=== PATIENT | male | born 1960 | race Caucasian/White ===

== ENCOUNTER 2016-11-12 01:26 | Emergency (ER) | payer OTHER ==
[~2016-11-12] VITALS: Ht 180.3 cm; Wt 113.5 kg
[~2016-11-12 01:26] MED LIST: ALBI1INJ2 SQ; ATV/1 PO; DULO60CA44 PO; GABA-113 PO; METF-384 PO; VNTHFA/IN INH
[2016-11-12 01:28] VITALS: TEMP 36.5; Ht 180.3 cm; Wt 113.5 kg
[2016-11-12 01:55] VITALS: BP 108/67; PULSE 88; O2SAT 95
[2016-11-12] MEDS ORDERED: OXYCODONE IR HOME PACK PO ONE (02:00)
--- NOTE | 2016-11-12 03:21 | EMERGENCY ROOM VISIT NOTE ---
ED Visit Note First contact with patient: 01:40 CHIEF COMPLAINT: Ankle pain HISTORY OF PRESENT ILLNESS: This 56 yo patient presents to the emergency department with co worker after sustaining an injury to the right ankle and foot with a twisting, inversion motion when he was injured at work from the equipment falling on his leg and sustained an abrasion. Tetanus is current. The patient complains of pain along the outside of the ankle. The patient denies pain of the foot. The patient rates the pain as throbbing and 5/10. The patient is barely able to bear weight on the foot. Constant pain, worse with movement, weight bearing, and the dependent position. No knee pain, the patient is able to move their toes. No numbness or weakness of the foot, no laceration. The patient has had a previous fracture to this ankle. The patient has taken nothing for the pain. The patient denies any other injury. REVIEW OF SYSTEMS: A 6 system review of systems was completed with positives and pertinent negatives listed in the HPI. ALLERGIES: Penicillin MEDICATIONS: Reviewed PMH:(1) Diabetes Status: Chronic (2) Hyperlipidemia Status: Chronic SOCIAL HISTORY: No drug use PHYSICAL EXAM: Vital Signs: Reviewed Nurse's notes, vital signs stable. GENERAL : Pleasant male, no acute distress, but appears in pain, well-developed, well- nourished. MENTAL STATUS: Alert, oriented to person place and time, and cooperative. MUSCULOSKELETAL: The right ankle is swollen and tender over the lateral malleolus, but the skin is intact and there is no ligamentous instability. There is no fifth metatarsal tenderness. There is no tenderness over the rest of the foot. There is no calf tenderness. Minimal distal fibular tenderness. There is no visual deformity. The foot and toes are warm and well-perfused. Dorsalis pedis pulse 2+. Sensation to pain and light touch is intact. Capillary refill less than 2 seconds. Superficial abrasion to the right lower leg without signs of infection. EMERGENCY DEPARTMENT COURSE: I examined the patient. Bridges cleansed and dressed by nursing. X-rays of the tib-fib and ankle were reviewed by myself and no fracture. Gel splint was applied to the ankle under my direction and the position was satisfactory. Neurovascular status was rechecked and intact. The patient was instructed on the use of crutches. He was advised to follow-up with workers, but a few days or here in the ER sooner for severe pain, numbness , tingling, worsening signs or symptoms or as needed. The patient was discharged home in good condition. Differential diagnoses include sprain, strain, fracture, dislocation and other etiologies were considered. DIAGNOSIS: #1 lower leg injury of right leg number # 2 work-related injury #3 lower leg abrasion DISCHARGE INSTRUCTIONS: As below Problem List Medical Problems: (1) Diabetes Status: Chronic (2) Hyperlipidemia Status: Chronic Current/Historical Medications Scheduled Albiglutide (Tanzeum), 50 MG SQ WK Albuterol Hfa (Ventolin Hfa), 2 PUFFS INH Q4 Duloxetine Hcl (Cymbalta), Unknown Dose PO DAILY Gabapentin (Neurontin), 300 MG PO TID Lorazepam (Ativan), 1 MG PO DAILY Metformin Hcl (Glucophage), 1,000 MG PO QPM Allergies Coded Allergies: Penicillins (Verified Allergy, Unknown, nausea, 11/12/16) Vital Signs Date Time Temp Pulse Resp B/P Pulse Ox O2 Delivery O2 Flow Rate FiO2 11/12/16 01:55 88 20 108/67 95 Room Air 11/12/16 01:28 36.5 86 20 130/97 96 Room Air Departure Information Impression Primary Impression: Injury of right lower leg Additional Impressions: Work related injury Abrasion, right lower leg, initial encounter Dispostion Home / Self-Care Condition GOOD Referrals Josh Ray MD Forms HOME CARE DOCUMENTATION FORM, Work Instructions, Return To Work: 1 day IMPORTANT VISIT INFORMATION Patient Instructions [facility], ED Abrasion Additional Instructions Antibiotic ointment and bandage to the areas until healed. Follow up with family doctor or return for any signs of infection (increasing redness, swelling , drainage, or fever). Keep covered when in sun until fully healed then SPF 50 or higher until scar healed. Oxycodone (OxyIR) 5mg: Take 1-2 pills every four hours for breakthrough pain. Avoid alcohol, operating machinery or dangerous equipment, working on ladders or roofs, DRIVING, or situations where being under the influence may be dangerous. It is recommended to use an bagz-ker-cbiagha stool softener such as Colace, 100mg twice daily while taking this medication to avoid constipation. Ibuprofen(Motrin, Advil) may be used for fever or pain. Use 600mg every six hours as needed. Take with food. Avoid using more than 2400mg in a 24 hour period. Do not use 2400mg per day for more than three consecutive days without physician direction. Prolonged inappropriate use can lead to stomach upset or ulcers. This medication can be taken if you need to drive, work, or perform activities which may be dangerous when taking narcotic pain medication. (AND/OR) Acetaminophen(Tylenol) may be used for fever or pain. Use 1000mg every six hours as needed. Avoid using more than 3000mg in a 24 hour period. This medication can be taken if you need to drive, work, or perform activities which may be dangerous when taking narcotic pain medication. Ice compresses for 20 minutes at a time four times daily for 2-3 days. Use the crutches as instructed. Rest and elevate your injury. Wear ankle gel splint until pain subsides. Do not have it so tight that you cannot feel your foot. Continue current medications. Return to the ER immediately for any numbness, tingling, severe pain, extreme swelling in the extremity or as needed. Call Orthopedics tomorrow to arrange follow up for your injury. Work Instructions Return To Work: 1 day Problem Qualifiers
--- NOTE | 2016-11-12 06:58 | DIAGNOSTIC IMAGING REPORT ---
RIGHT ANKLE MIN 3 VIEWS ROUTINE CLINICAL HISTORY: right, metal fell Right trauma. Pain. COMPARISON: None. DISCUSSION: Several small avulsions from the medial malleolus. Mild degenerative change subtalar joint. Very small heel spur. No acute bony abnormality. Moderate degenerative osteophytic change throughout. There is no evidence for soft tissue swelling. IMPRESSION: Degenerative change. Findings consistent with old trauma. No acute bony abnormality. Electronically signed by: Donal Christian M.D. 11/12/2016 6:56 AM Dictated Date/Time: 11/12/2016 6:56 AM
--- NOTE | 2016-11-12 07:01 | DIAGNOSTIC IMAGING REPORT ---
RIGHT TIBIA/FIBULA 2 VIEWS ROUTINE CLINICAL HISTORY: right, metal fell Right trauma. Pain. COMPARISON: None. DISCUSSION: The bones and joint spaces appear intact. There is no evidence of fracture, dislocation or bony disease. There is no evidence for soft tissue swelling. IMPRESSION: Negative study. Electronically signed by: Donal Christian M.D. 11/12/2016 6:59 AM Dictated Date/Time: 11/12/2016 6:59 AM
== END 2016-11-12 02:24 | disposition home or self-care (01) ==
LOC: C.EDB 01:28
DX: S89.91XA Unspecified injury of right lower leg, initial encounter (principal); S80.811A Abrasion, right lower leg, initial encounter; W20.8XXA Other cause of strike by thrown, projected or falling object, initial encounter; Y99.0 Civilian activity done for income or pay; E11.9 Type 2 diabetes mellitus without complications; E78.5 Hyperlipidemia, unspecified

== ENCOUNTER 2017-01-21 07:18 | Inpatient (IN) | payer OTHER ==
[~2017-01-21] VITALS: Ht 176.5 cm; Wt 115.7 kg
[2017-01-21] MEDS ORDERED: ESCI10TA17 PO (07:48)
[2017-01-21] MEDS ORDERED: MIRT15TA PO (07:48)
[2017-01-21 07:54] LABS: BASO % 0.4 %; BASO ABS # 0.02 K/uL (0-0.2); COMPLETE YES; EOS % 2.5 %; HEMATOCRIT 38.9 % (42-52); IG% 0.7 %; LYMPH % 26.5 %; LYMPH ABS # 1.47 K/uL (1.2-3.4); MEAN CELL VOLUME 91.1 fL (80-100); MEAN CORPUSCULAR HEMOGLOBIN 31.6 pg (25-34); MEAN CORPUSCULAR HGB CONC 34.7 g/dl (32-36); MEAN PLATELET VOLUME 9.4 fL (7.4-10.4); MONO % 8.3 %; NEUT % 61.6 %; PLATELET COUNT 161 K/uL (130-400); RED BLOOD COUNT 4.27 M/uL (4.7-6.1); WHITE BLOOD COUNT 5.54 K/uL (4.8-10.8)
[2017-01-21 08:17] LABS: URINE APPEARANCE CLEAR (CLEAR); URINE BILIRUBIN NEG (NEG); URINE COLOR DK YELLOW; URINE NITRITE NEG (NEG); URINE SPECIFIC GRAVITY 1.028 (1.000-1.030); UROBILINOGEN NEG (NEG)
[2017-01-21 08:18] LABS: MANUAL MICROSCOPIC REQUIRED? NO; REVIEW REQ? NO
[2017-01-21 08:18] LABS: BUN/CREATININE RATIO 19.6 (10-20); POTASSIUM 3.6 mmol/L (3.5-5.1)
[2017-01-21 08:22] LABS: CALCIUM 8.1 mg/dl (8.5-10.1)
--- NOTE | 2017-01-21 08:22 | EMERGENCY ROOM VISIT NOTE ---
History Report prepared by Steve: Rosa Cabrales Under the Supervision of: Dr. Vineet Wilkerson M.D. First contact with patient: 07:27 Chief Complaint: MENTAL HEALTH EVALUATION Stated Complaint: EVALUATION - SENT BY [employer]TER History of Present Illness The patient is a 56 year old male who presents to the Emergency Room with complaints of constant depression that worsened 6 days ago. The patient states that he is going through a divorce after 30 years and he has been homeless. The patient was residing at [facility] but they told him that he needed to leave the house 6 days ago. The rest of the history was obtained from the assistant case manager and nursing triage note. The patient called the [facility] crisis line on Wednesday after being told to leave [facility] and said that he was going to be found "6 feet under." He did not report having a plan to [facility]. The patient denies any homicidal ideations. He expresses that he will voluntarily come into the hospital. The patient has been going to therapy and his therapist suggested a 302, but he verbalized that he would come into the hospital voluntarily for severe depression and suicidal ideations. The patient also has an active 302 warrant. Source of History: patient, nursing staff, other (assistant case manager) Onset: 6 days ago Position: other (global) Quality: other (depression) Timing: worsening Note: suicidal ideations without plan, no homicidal ideations Review of Systems See HPI for pertinent positives & negatives. A total of 10 systems reviewed and were otherwise negative. Past Medical & Surgical Medical Problems: (1) Chest pain (2) Chronic pain (3) Depression (4) Diabetes (5) Generalized anxiety disorder (6) Hyperlipidemia (7) Nicotine abuse (8) Obesity (9) Suicidal ideation Family History FH: cancer FH: diabetes mellitus FH: heart disease Social History Smoking Status: Current Every Day Smoker Alcohol Use: none Drug Use: none Marital Status: Housing Status: lives alone Occupation Status: employed Current/Historical Medications Scheduled Albiglutide (Tanzeum), 50 MG SQ WK on Wednesday Escitalopram (Lexapro), 10 MG PO DAILY Fluticasone Prop/Salmeterol (Advair Diskus 500/50 60 Dose), 1 PUFFS INH BID Gabapentin (Neurontin), 300 MG PO TID Metformin Hcl (Glucophage), 1,000 MG PO BID Mirtazapine Soltab (Remeron Soltab), 7.5 MG PO DAILY Scheduled PRN Albuterol Sulfate (Proventil Hfa), 2 PUFFS INH QID PRN for Wheezing Allergies Coded Allergies: Penicillins (Verified Allergy, Unknown, nausea, 01/21/17) Physical Exam Vital Signs Date Time Temp Pulse Resp B/P (MAP) Pulse Ox O2 Delivery O2 Flow Rate FiO2 01/21/17 10:21 73 18 139/87 95 01/21/17 07:22 36.7 84 18 105/68 95 Room Air Physical Exam GENERAL: Patient is a healthy-appearing well-nourished male HEAD: Normocephalic atraumatic EYES: Ocular movements intact pupils equal and react to light OROPHARYNX mucous membranes are moist no exudates present no erythema or edema present NECK: Supple no nuchal rigidity CHEST: Good equal expansion LUNGS: Clear and equal to auscultation CARDIAC: Normal S1 and S2 ABDOMEN: Soft nontender no guarding BACK: No CVA tenderness EXTREMITIES: No pain upon palpation normal muscle strength in all groups no clubbing cyanosis or edema NEURO: Patient is following commands and answering questions appropriately. Alert and oriented x3 Cranial Nerves 2-12 grossly intact Medical Decision & Procedures ER Provider Diagnostic Interpretation: Radiology results as stated below per my review and radiologist interpretation: RIGHT KNEE 1 OR 2 VIEWS ROUTINE DISCUSSION: No acute fractures are visualized. There is superior patellar quadriceps insertional spurring. There is anterior tibial spine spurring at the infrapatellar tendon insertion. There are no acute fractures. There are no erosive or destructive changes. IMPRESSION: Chronic changes as described above. No acute fractures. No evidence of erosive disease. Electronically signed by: Enrique Jaime M.D. 01/21/2017 9:31 AM Dictated Date/Time: 01/21/2017 9:30 AM Laboratory Results 01/21/17 07:41 Red Blood Count 4.27, Mean Corpuscular Volume 91.1, Mean Corpuscular Hemoglobin 31.6, Mean Corpuscular Hemoglobin Concent 34.7, Mean Platelet Volume 9.4, Neutrophils (%) (Auto) 61.6, Lymphocytes (%) (Auto) 26.5, Monocytes (%) (Auto) 8.3, Eosinophils (%) (Auto) 2.5, Basophils (%) (Auto) 0.4, Neutrophils # (Auto) 3.41, Lymphocytes # (Auto) 1.47, Monocytes # (Auto) 0.46, Eosinophils # (Auto) 0.14, Basophils # (Auto) 0.02 01/21/17 07:41 Test 01/21/17 07:41 01/21/17 08:04 White Blood Count 5.54 K/uL (4.8-10.8) Red Blood Count 4.27 M/uL (4.7-6.1) Hemoglobin 13.5 g/dL (14.0-18.0) Hematocrit 38.9 % (42-52) Mean Corpuscular Volume 91.1 fL (80-100) Mean Corpuscular Hemoglobin 31.6 pg (25-34) Mean Corpuscular Hemoglobin Concent 34.7 g/dl (32-36) Platelet Count 161 K/uL (130-400) Mean Platelet Volume 9.4 fL (7.4-10.4) Neutrophils (%) (Auto) 61.6 % Lymphocytes (%) (Auto) 26.5 % Monocytes (%) (Auto) 8.3 % Eosinophils (%) (Auto) 2.5 % Basophils (%) (Auto) 0.4 % Neutrophils # (Auto) 3.41 K/uL (1.4-6.5) Lymphocytes # (Auto) 1.47 K/uL (1.2-3.4) Monocytes # (Auto) 0.46 K/uL (0.11-0.59) Eosinophils # (Auto) 0.14 K/uL (0-0.5) Basophils # (Auto) 0.02 K/uL (0-0.2) RDW Standard Deviation 42.4 fL (36.4-46.3) RDW Coefficient of Variation 12.9 % (11.5-14.5) Immature Granulocyte % (Auto) 0.7 % Immature Granulocyte # (Auto) 0.04 K/uL (0.00-0.02) Anion Gap 7.0 mmol/L (3-11) Est Creatinine Clear Calc Drug Dose 106.4 ml/min Estimated GFR () 97.1 Estimated GFR (Non- 83.8 BUN/Creatinine Ratio 19.6 (10-20) Calcium Level 8.1 mg/dl (8.5-10.1) Total Bilirubin 0.8 mg/dl (0.2-1) Direct Bilirubin 0.2 mg/dl (0-0.2) Aspartate Amino Transf (AST/SGOT) 12 U/L (15-37) Alanine Aminotransferase (ALT/SGPT) 20 U/L (12-78) Alkaline Phosphatase 92 U/L (45-117) Total Protein 6.7 gm/dl (6.4-8.2) Albumin 4.0 gm/dl (3.4-5.0) Thyroid Stimulating Hormone (TSH) 3.640 uIu/ml (0.300-4.500) Ethyl Alcohol mg/dL < 3.0 mg/dl (0-3) Urine Color DK YELLOW Urine Appearance CLEAR (CLEAR) Urine pH 6.0 (4.5-7.5) Urine Specific [place] 1.028 (1.000-1.030) Urine Protein NEG (NEG) Urine Glucose (UA) 1+ (NEG) Urine Ketones TRACE (NEG) Urine Occult Blood NEG (NEG) Urine Nitrite NEG (NEG) Urine Bilirubin NEG (NEG) Urine Urobilinogen NEG (NEG) Urine Leukocyte Esterase NEG (NEG) Urine Opiates Screen NEG (NEG) Urine Methadone, Qualitative NEG (NEG) Urine Barbiturates NEG (NEG) Urine Phencyclidine (PCP) Level NEG (NEG) Ur Amphetamine/Methamphetamine NEG (NEG) MDMA (Ecstasy) Screen POS (NEG) Urine Benzodiazepines Screen NEG (NEG) Urine Cocaine Metabolite NEG (NEG) Urine Marijuana (THC) NEG (NEG) Labs reviewed by ED physician. Medications Administered Medications (Trade) Dose Ordered Sig/Garrison Route Start Time Stop Time Status Last Admin Dose Admin Ibuprofen (Motrin Tab) 600 mg NOW STAT PO 01/21/17 08:51 01/21/17 08:52 DC 01/21/17 08:59 600 MG Oxycodone/ Acetaminophen (Percocet 5-325mg Tab) 2 tab NOW ONCE PO 01/21/17 09:00 01/21/17 09:01 DC 01/21/17 09:00 2 TAB Nicotine (Nicoderm Cq 21MG Patch) 1 patch STK-MED ONCE .ROUTE 01/21/17 10:23 01/21/17 10:24 DC 01/21/17 10:26 1 PATCH Nicotine Polacrilex (Nicorette 2MG Gum) 1 piece STK-MED ONCE .ROUTE 01/21/17 10:23 01/21/17 10:24 DC 01/21/17 10:26 1 PIECE Acetaminophen (Tylenol Tab) 650 mg Q4H PRN PO 01/21/17 10:30 02/20/17 10:29 01/21/17 22:58 650 MG Albuterol (Ventolin Hfa Inhaler) 2 puffs Q4 INH 01/21/17 12:00 01/21/17 14:59 DC 01/21/17 14:05 2 PUFFS ED Course 0738: Past medical records reviewed. The patient was evaluated in room A3. A complete history and physical examination was performed. 0834: I let the assistant case manager know that the patient is medically clear. 0847: I reassessed the patient. He informed me that he is experiencing pain in his right knee and requested some medications for it. 0851: Ordered Ibuprofen 600 mg PO 0900: Ordered Oxycodone/Acetaminophen 2 tab PO 1100: The [address] [place] [address] liaison evaluated the patient. The patient has been accepted to [address] [place] [address] so he will go there for further management and evaluation. Medical Decision Differential diagnosis: Etiologies such as mood disorder, infection, hypoglycemia, electrolyte abnormalities, cardiac sources, intracerebral event, toxicologic, neurologic, as well as others were entertained. Medication Reconciliation: I attest that I have personally reviewed the patient' s current medication list This is a 56-year-old male who presents emergency department under a mental health warrant over concerns that the patient is suicidal. He is threatening to jump off a abdias. He is also complaining of knee pain. There is no evidence of acute fracture dislocation or subluxation to the knee and his knee pain has been ongoing for the past several months. The patient will be referred to orthopedics for continuing knee pain. He was given ibuprofen and Percocet in the emergency department for his knee pain. I do believe that the patient is medically clear. He was evaluated by 3 S. who agreed to admit the patient. The patient did sign himself in. For this reason I felt that the 302 warrant could be denied. Impression Primary Impression: Mood disorder Additional Impression: Right knee pain Scribe Attestation The scribe's documentation has been prepared under my direction and personally reviewed by me in its entirety. I confirm that the note above accurately reflects all work, treatment, procedures, and medical decision making performed by me. Departure Information Dispostion Mental Health Acute Care ([facility]) Referrals No Doctor, Assigned (PCP) Patient Instructions [facility] Problem Qualifiers Additional Impression: Right knee pain Chronicity: acute Qualified Codes: M25.561 - Pain in right knee
[2017-01-21 08:29] LABS: THYROID STIMULATING HORMONE 3.64 uIu/ml (0.300-4.500)
[2017-01-21] MEDS ORDERED: IBUPROFEN 600 MG TAB PO STA (08:51)
[2017-01-21 08:56] LABS: BENZODIAZEPINE, URINE NEG (NEG); COCAINE,URINE NEG (NEG); PHENCYCLIDINE, URINE NEG (NEG)
[2017-01-21] MEDS ORDERED: OXYCODONE/ACETAMINOPHEN 5-325 TAB PO ONE (09:00)
--- NOTE | 2017-01-21 09:32 | DIAGNOSTIC IMAGING REPORT ---
RIGHT KNEE 1 OR 2 VIEWS ROUTINE CLINICAL HISTORY: Right knee pain. COMPARISON: None. DISCUSSION: No acute fractures are visualized. There is superior patellar quadriceps insertional spurring. There is anterior tibial spine spurring at the infrapatellar tendon insertion. There are no acute fractures. There are no erosive or destructive changes. IMPRESSION: Chronic changes as described above. No acute fractures. No evidence of erosive disease. Electronically signed by: Enrique Jaime M.D. 01/21/2017 9:31 AM Dictated Date/Time: 01/21/2017 9:30 AM
[2017-01-21 10:21] VITALS: O2SAT 95
[2017-01-21] MEDS ORDERED: METF-384 PO (10:23)
[2017-01-21] MEDS ORDERED: NICOTINE 21 MG/24 HR TDSY ONE (10:23)
[2017-01-21] MEDS ORDERED: NICOTINE POLACRILEX 2 MG GUM ONE (10:23)
[2017-01-21] MEDS ORDERED: ALBIGLUTIDE 50 MG SQ SCH (10:30)
[2017-01-21] MEDS ORDERED: hydrOXYzine HCL 25 MG TAB PO PRN (10:30)
[2017-01-21] MEDS ORDERED: NURSING VERBAL MED ORDER ONE (10:30)
[2017-01-21] MEDS ORDERED: SODIUM CHLORIDE 0.65% NA SOLN 45 ML (OCEAN) PRN (10:30)
[2017-01-21] MEDS ORDERED: NICOTINE POLACRILEX 2 MG GUM MT PRN (10:30)
[2017-01-21] MEDS ORDERED: ALUMINUM/MAGNESIUM SUSP 30 ML UDC PO PRN (10:30)
[2017-01-21] MEDS ORDERED: MAGNESIUM HYDROXIDE SUSP 30 ML UDC PO PRN (10:30)
[2017-01-21] MEDS ORDERED: PHARMACY GLYCEMIC MGMT CONSULT PRN (10:43)
[2017-01-21] MEDS ORDERED: ALBUTEROL HFA 8 GM INHALER INH SCH (12:00)
[2017-01-21] MEDS ORDERED: DEXTROSE 50% 50 ML SYR IV PRN (13:00)
[2017-01-21] MEDS ORDERED: GLUCAGON FOR INJ 1 MG VIAL SQ PRN (13:00)
[2017-01-21] MEDS ORDERED: GLUCOSE 40% GEL 15 GM TUBE PO PRN (13:00)
[2017-01-21] MEDS ORDERED: GLUCOSE 10 TABS/TUBE PO PRN (13:00)
[2017-01-21 13:15] VITALS: BP 126/86; PULSE 63; TEMP 36.6; Ht 176.5 cm; Wt 115.7 kg
[2017-01-21] MEDS ORDERED: GABAPENTIN 300 MG CAP PO SCH (14:00)
[2017-01-21] MEDS ORDERED: ADVIN50/60 INH (14:15)
[2017-01-21] MEDS ORDERED: MIRT15TA2 PO (14:16)
[2017-01-21] MEDS ORDERED: ALBUAER INH (14:21)
[2017-01-21] MEDS: INSULIN ASPART 100 UNITS/ML 3 ML PEN SC SCH ×3 (14:53→21:01)
[2017-01-21] MEDS ORDERED: ALBUTEROL HFA 8 GM INHALER INH PRN (15:00)
--- NOTE | 2017-01-21 15:18 | Pharmacy Progress Note ---
Glycemic Control Intl Consult Date of Service Jan 21, 2017. Scope Glycemic Pharmacist consulted by Dr Del Castillo on 01/21/2017 for glycemic control and to write orders per [facility] inpatient glycemic control protocol Objective Weight (Kilograms): 115.700 Accuchecks BSG (last 24hrs): Test 01/21/17 07:41 01/21/17 08:21 Random Glucose 205 mg/dl (70-99) Bedside Glucose 232 mg/dl (70-99) Laboratory Data (last 24hrs) Test 01/21/17 07:41 Anion Gap 7.0 mmol/L BUN/Creatinine Ratio 19.6 Blood Urea Nitrogen 20 mg/dl Creatinine 1.00 mg/dl Potassium Level 3.6 mmol/L Sodium Level 142 mmol/L White Blood Count 5.54 K/uL Red Blood Count 4.27 M/uL Hemoglobin 13.5 g/dL Hematocrit 38.9 % Mean Corpuscular Volume 91.1 fL Mean Corpuscular Hemoglobin 31.6 pg Mean Corpuscular Hemoglobin Concent 34.7 g/dl Platelet Count 161 K/uL Mean Platelet Volume 9.4 fL Neutrophils (%) (Auto) 61.6 % Lymphocytes (%) (Auto) 26.5 % Monocytes (%) (Auto) 8.3 % Eosinophils (%) (Auto) 2.5 % Basophils (%) (Auto) 0.4 % Neutrophils # (Auto) 3.41 K/uL Lymphocytes # (Auto) 1.47 K/uL Monocytes # (Auto) 0.46 K/uL Eosinophils # (Auto) 0.14 K/uL Basophils # (Auto) 0.02 K/uL Recent Pertinent Medications Outpatient Anti-diabetic Regimen: * Tanzem 50 mg SQ weekly on Sundays Risk Factors for Insulin Resistance: * Diet: type 2 diabetic diet Assessment & Plan ASSESSMENT: * ADA & AACE recommend a goal blood sugar range 140-180 mg/dl for the majority of critically ill & non-critically ill patients. However, more stringent targets may be selected in individual cases. Will utilize more stringent goal of 100-140mg/dl based on patient age & comorbidities. * Mr Pittman is a 56 y/o M admitted 01/21/2017 for depression and suicidal ideation. He has a PMH of depression and hyperlipidemia. In the ER his blood sugar was 205 mg/dL on his chemistry panel. However, by 1400 this had decreased to 106 mg/dL. * Correctional insulin was started with parameters between weight based stress of 1 and stress of 2. Since the patient's second reading was less than 180 mg/dL , I did not start Lantus. I believe though if his sugar rises, Lantus 15 units daily could be utilized. I ordered an A1C. * PLAN FOR INPATIENT GLYCEMIC CONTROL: * Correctional Insulin with NOVOLOG per scale ACHS * Goal Range: Low 100 mg/dL - High 140 mg/dL * Correction Factor: 30 mg/dL/unit * Nutritional / Prandial insulin per carb ratio of 1 unit per 10 grams CHO consumed * Please note that the plan above was derived based on current level of insulin resistance and hospital stress. These recommendations are appropriate for inpatient admission only. Plan of care upon discharge will need to be reassessed to avoid potential outpatient hypo/hyperglycemia. Thank you.
[2017-01-21] MEDS ORDERED: FLUOXETINE HCL 20 MG CAP PO ONE (15:25)
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
[2017-01-21] MEDS: ACETAMINOPHEN 325 MG TAB PO PRN ×2 (15:39→22:58)
[2017-01-21] MEDS: ALBUTEROL HFA 8 GM INHALER INH PRN (16:07)
[2017-01-21] MEDS: METFORMIN HCL 500 MG TAB PO SCH (17:49)
[2017-01-21] MEDS: IBUPROFEN 600 MG TAB PO SCH (20:56)
[2017-01-21] MEDS: GABAPENTIN 600 MG TAB PO SCH (20:56)
[2017-01-21] MEDS: FLUTICASONE/SALMETEROL (ADVAIR) 500/50 INH 14 PUFF INH SCH (20:56)
[2017-01-22 07:05] VITALS: BP_SYST 125; BP_SYST 144; BP_DIAS 81; PULSE 76; PULSE 91; TEMP 36.5
[2017-01-22] MEDS: INSULIN ASPART 100 UNITS/ML 3 ML PEN SC SCH ×4 (08:00→21:39)
[2017-01-22] MEDS: FLUTICASONE/SALMETEROL (ADVAIR) 500/50 INH 14 PUFF INH SCH ×2 (08:01→21:40)
[2017-01-22] MEDS: METFORMIN HCL 500 MG TAB PO SCH ×2 (08:01→17:45)
[2017-01-22] MEDS: NICOTINE 21 MG/24 HR TDSY TD SCH (08:02)
[2017-01-22] MEDS: FLUOXETINE HCL 20 MG CAP PO SCH (08:02)
[2017-01-22] MEDS: IBUPROFEN 600 MG TAB PO SCH ×3 (08:02→21:40)
[2017-01-22] MEDS: GABAPENTIN 600 MG TAB PO SCH ×3 (08:02→21:40)
[2017-01-22 08:45] LABS: ESTIMATED AVERAGE GLUCOSE 131 mg/dl; HA1C FLAG Normal (Normal)
[2017-01-22] MEDS: BISMUTH SUBSALICYLATE PER ML OMNICELL CHARGE PO PRN ×3 (13:05→21:44)
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
[2017-01-23 07:13] VITALS: BP_SYST 109; BP_SYST 87; BP_DIAS 48; BP_DIAS 74; PULSE 75; PULSE 80; TEMP 36.8
[2017-01-23] MEDS: ACETAMINOPHEN 325 MG TAB PO PRN ×2 (07:19→13:02)
[2017-01-23] MEDS: INSULIN ASPART 100 UNITS/ML 3 ML PEN SC SCH ×4 (08:00→22:05)
[2017-01-23] MEDS: FLUTICASONE/SALMETEROL (ADVAIR) 500/50 INH 14 PUFF INH SCH ×2 (08:25→21:52)
[2017-01-23] MEDS: FLUOXETINE HCL 20 MG CAP PO SCH (08:26)
[2017-01-23] MEDS: IBUPROFEN 600 MG TAB PO SCH ×3 (08:26→21:53)
[2017-01-23] MEDS: GABAPENTIN 600 MG TAB PO SCH ×3 (08:26→21:53)
[2017-01-23] MEDS: NICOTINE 21 MG/24 HR TDSY TD SCH (08:27)
[2017-01-23] MEDS: METFORMIN HCL 500 MG TAB PO SCH ×2 (09:01→18:09)
--- NOTE | 2017-01-23 16:01 | Psychiatric Progress Notes ---
Progress Note Date of Service Jan 23, 2017. Interval History Alpesh Pittman is a 56-year-old male who was recently evicted from [facility] snf, has a history of depression, and called the crisis line with suicidal thoughts. When they were unable to reach him, they completed a 302 warrant. He presented to the emergency room, and was willing to sign in voluntarily. Chief Complaint "I am in pain". Subjective Patient was seen & assessed interval progress reviewed with nursing. Pt seen in his room with him first laying on his bed then him sitting upright. Pt feels that no body cares and that this doctor does not care about him since not adding opiate pain meds to treat his chronic pain concerns. Pt feels that his current prescribed meds are not alleviating his pain. He feels that no body cares and that he does not have anything left expect his care. He feels that life is not worth living in general but denied feeling that way today. with then explaining why he feels that way in a manner that sounds as of this suicidal thinking would still be present .He endorsed some sleep disturbance that he attributes to his pain concerns. He has family in [facility] including parents that he could live with but that do not have financial resources to bring his stuff to [facility]. He is considering residing with them but not in the immediate future as he wants to address his divorce locally first. He denied HI. He denied AH and VH. He denied manic symptoms. He has been having diarrhea and gas that was worse yesterday and has lessened since Kaopectate was taken. Pt endorsed feeling safe on the unit. He at first denied anger with having an angry undertone that flared up to overt level at times in his interaction and as designer writer indicated that was not adding opiate medication to his treatment plan, he became overtly angry raising his voice and indicated that designer writer does not care about him and that he would not to deal with designer writer. Review of Systems Constitutional: No fever, No chills, No sweats, No weight loss, No weakness, No fatigue, No problem reported ENT: No hearing loss, No unusual epistaxis, No nasal symptoms, No sore throat, No tinnitus, No dental problems, No trouble swallowing, No problem reported Respiratory: No cough, No sputum, No wheezing, No shortness of breath, No dyspnea on exertion, No dyspnea at rest, No hemoptysis, No problem reported Abdomen: + vomiting, + diarrhea, + problem reported (gas) Musculoskeletal: + joint pain, + problem reported (back pain ) Psychiatric: + depression symptoms, + insomnia Sleep Information Total Hours of Sleep: 6.75 Meal Information Percent of Breakfast Consumed: 100 Percent of Lunch Consumed: 100 Percent of Dinner Consumed: 100 Mental Status Exam During interview pt is: alert and oriented, cooperative Appearance: appropriately dressed, appropriately groomed Eye contact is: fair Motor behavior is: no abnormal motor movements Speech: normal in rate, rhythm & volume Affect: depressed, angry Mood is: depressed, angry Thought process: goal directed, other (preoccupied about pain and how designer writer does not care if not giving him opiate pain meds) Thought content: reality based without delusions Suicidal thought are: denied Homicidal thoughts are: denied Hallucinations: denies auditory, denies visual Cognition: memory grossly intact, language grossly intact Intelligence estimated to be: average Insight: poor Judgement: poor Impression 56-year-old white male with a history of depression who presents with worsening mood and suicidal ideation in the context of numerous psychosocial stressors, including pending divorce, homelessness, financial strain, and poor support. He has failed trials of duloxetine, mirtazapine, and escitalopram. He endorses suicidal thoughts to jump off a abdias, and is admitted voluntarily. He requires inpatient treatment due to the high risk for suicide if discharged. Plan (1) Suicidal ideation Q 15 min checks for safety Work on discharge safety plan (2) Depression Would like to try a different antidepressant. Will avoid sedating meds as he has had problems with oversedation with lorazepam and mirtazapine. Will stop mirtazapine and escitalopram, as he doesn't feel they've been helpful and wants to try something else. Start fluoxetine 20mg daily. Reviewed risks, benefits, side effects, and what to expect if the medication is working. Encourage group attendance and participation. 01/22 - continue current dose of Prozac, monitor D. 01/23 monitor for possible s/e of Prozac mike GI s/e given diarrhea and Gas that was most present on 01/21 (3) Generalized anxiety disorder Start fluoxetine as above, and increase gabapentin to target both anxiety and chronic pain. Offer hydroxyzine prn for anxiety and sleep. Avoid benzos as he was altered and oversedated with lorazepam in the past. Work on behavioral techniques for coping with anxiety. (4) Diabetes Continue home meds. Consult diabetic pharmacist. (5) Obesity Encourage healthy diet and gentle exercise. (6) Nicotine abuse Offer patch and gum as needed. Offer smoking cessation counseling. (7) Chronic pain Reports chronic knee, back and hip pain. Will order APAP, Ibuprofen, and may use ice/heat pad as needed. Will increase gabapentin to 600mg tid to target neuropathic pain. Will need set up with new PCP - has chosen Dr. Angela Sierra, and will need an appointment at discharge. 01/23 continue plan as above Discharge / Aftercare Planning Primary Care Physician: Name: briana Therapist: Name: Marta at [facility] [employer] Operator: Name: Brayden at [facility] Visit Code E&M Code: 55054 Inventory Assets Strengths: Employed, willing for treatment Risk Factors Assessment Male: Yes : Yes /single/: No Higher / Fall in social status: Yes Health problems: Yes Mental Health Diagnoses: Yes Substance use disorders: No Previous attempt: No Family history of suicide: No Previous psychiatric stay: No Hopelessness: Yes Smoker: Yes Protective Factors Assessment Holiness beliefs: Yes : No Responsible for young children: No Employed: Yes Stable relationships: No Supportive family: No Good rapport with provider: No Data Vital Signs Last 24 Hrs: Date Time Temp Pulse Resp B/P (MAP) Pulse Ox O2 Delivery O2 Flow Rate FiO2 01/23/17 07:13 36.8 75 16 87/48 80 109/74 Meds Administered Last 24 Hrs: Meds Administered (Past 24Hrs) Medications (Trade) Dose Ordered Sig/[place] Route Start Time Stop Time Status Last Admin Dose Admin Nicotine (Nicoderm Cq 21MG Patch) 1 patch QAM TD 01/22/17 09:00 02/21/17 08:59 01/23/17 08:27 1 PATCH Miscellaneous (Remove Nicoderm Patch) 1 ea HS N/A 01/21/17 21:00 02/20/17 20:59 01/21/17 21:00 1 EA Metformin HCl (Glucophage Tab) 1,000 mg BIDM PO 01/21/17 17:45 02/20/17 17:44 01/23/17 09:01 1,000 MG Albuterol (Ventolin Hfa Inhaler) 2 puffs Q4H PRN INH 01/21/17 16:00 02/20/17 15:59 01/21/17 16:07 2 PUFFS Salmeterol Xinafoate/ Fluticasone (Advair Diskus 500/50 Inh) 1 puff BID INH 01/21/17 22:00 02/20/17 21:59 01/23/17 08:25 1 PUFF Fluoxetine HCl (Prozac Cap) 20 mg QAM PO 01/22/17 09:00 02/21/17 08:59 01/23/17 08:26 20 MG Ibuprofen (Motrin Tab) 600 mg TID PO 01/21/17 22:00 02/20/17 21:59 01/23/17 14:12 600 MG Gabapentin (Neurontin Tab) 600 mg TID PO 01/21/17 22:00 02/20/17 13:59 01/23/17 14:12 600 MG Lab Results Last 24 Hrs: Last 24 Hours Test 01/22/17 16:11 01/22/17 20:42 01/23/17 07:09 Bedside Glucose 148 mg/dl 196 mg/dl 114 mg/dl Problem Qualifiers (1) Depression: Depression Type: major depressive disorder Major depression recurrence: recurrent Major depression episode severity: severe Psychotic features: without psychotic features
[2017-01-23] MEDS: ALBUTEROL HFA 8 GM INHALER INH PRN (21:44)
[2017-01-23] MEDS: hydrOXYzine HCL 25 MG TAB PO PRN (22:56)
[2017-01-24 07:16] VITALS: BP_SYST 107; BP_SYST 110; BP_DIAS 68; BP_DIAS 70; PULSE 72; PULSE 80; TEMP 36.8
[2017-01-24] MEDS: INSULIN ASPART 100 UNITS/ML 3 ML PEN SC SCH ×4 (08:00→21:41)
[2017-01-24] MEDS: NICOTINE 21 MG/24 HR TDSY TD SCH (08:24)
[2017-01-24] MEDS: GABAPENTIN 600 MG TAB PO SCH ×3 (08:25→21:32)
[2017-01-24] MEDS: FLUOXETINE HCL 20 MG CAP PO SCH (08:25)
[2017-01-24] MEDS: FLUTICASONE/SALMETEROL (ADVAIR) 500/50 INH 14 PUFF INH SCH ×2 (08:27→21:31)
[2017-01-24] MEDS: IBUPROFEN 600 MG TAB PO SCH ×3 (08:29→21:32)
[2017-01-24] MEDS: METFORMIN HCL 500 MG TAB PO SCH ×2 (08:34→17:52)
--- NOTE | 2017-01-24 13:13 | Psychiatric Progress Notes ---
Progress Note Date of Service Jan 24, 2017. Interval History Alpesh Pittman is a 56-year-old male who was recently evicted from [facility] senior living, has a history of depression, and called the crisis line with suicidal thoughts. When they were unable to reach him, they completed a 302 warrant. He presented to the emergency room, and was willing to sign in voluntarily. Chief Complaint "I am not wanting to talk to you". Subjective Patient was seen & assessed interval progress reviewed with nursing Pt was indicating that was not wanting to have assessment done by show card writer. He was willing to come to the office I was using and indicated to me that what he had to say what take less then 2 minutes and that then he would leave the room. With a raised intense voice and angry affect he shared that he viewed me as dismissive to him yesterday and felt humiliated by me and that he felt that I demanded him to answer my questions. He indicated that he would file a grievance and got up to leave the room. I listened and attempted to inquire further and to also engage further and to inquire about symptoms and presentation. pt refused and left the room. Reviewed with nursing and nursing indicated pt is engaging in groups, and not indicating pain concerns to staff lately. Review of Systems Psychiatric: + depression symptoms Sleep Information Total Hours of Sleep: 6.50 Meal Information Percent of Breakfast Consumed: 100 Percent of Lunch Consumed: 100 Percent of Dinner Consumed: 75 Mental Status Exam During interview pt is: alert and oriented, uncooperative Appearance: appropriately dressed, appropriately groomed Eye contact is: poor Motor behavior is: no abnormal motor movements Speech: loud Affect: depressed, angry Mood is: depressed, angry Thought process: other (not willing to engage beyond indicating felt dismissed by show card writer yesterday) Thought content: cognitive distortions Cognition: memory grossly intact, language grossly intact Intelligence estimated to be: average Insight: poor Judgement: poor Impression 56-year-old white male with a history of depression who presents with worsening mood and suicidal ideation in the context of numerous psychosocial stressors, including pending divorce, homelessness, financial strain, and poor support. He has failed trials of duloxetine, mirtazapine, and escitalopram. He endorses suicidal thoughts to jump off a abdias, and is admitted voluntarily. He requires inpatient treatment due to the high risk for suicide if discharged. Plan (1) Suicidal ideation Q 15 min checks for safety Work on discharge safety plan (2) Depression Would like to try a different antidepressant. Will avoid sedating meds as he has had problems with oversedation with lorazepam and mirtazapine. Will stop mirtazapine and escitalopram, as he doesn't feel they've been helpful and wants to try something else. Start fluoxetine 20mg daily. Reviewed risks, benefits, side effects, and what to expect if the medication is working. Encourage group attendance and participation. 01/22 - continue current dose of Prozac, monitor D. 01/23 monitor for possible s/e of Prozac mike GI s/e given diarrhea and Gas that was most present on 01/21 (3) Generalized anxiety disorder Start fluoxetine as above, and increase gabapentin to target both anxiety and chronic pain. Offer hydroxyzine prn for anxiety and sleep. Avoid benzos as he was altered and oversedated with lorazepam in the past. Work on behavioral techniques for coping with anxiety. (4) Diabetes Continue home meds. Consult diabetic pharmacist. (5) Obesity Encourage healthy diet and gentle exercise. (6) Nicotine abuse Offer patch and gum as needed. Offer smoking cessation counseling. (7) Chronic pain Reports chronic knee, back and hip pain. Will order APAP, Ibuprofen, and may use ice/heat pad as needed. Will increase gabapentin to 600mg tid to target neuropathic pain. Will need set up with new PCP - has chosen Dr. Angela Sierra, and will need an appointment at discharge. 01/23 continue plan as above Discharge / Aftercare Planning Primary Care Physician: Name: briana Therapist: Name: Marta at [facility] Project Manager Retail: Name: Brayden at [facility] Visit Code E&M Code: 00408 Inventory Assets Strengths: Employed, willing for treatment Risk Factors Assessment Male: Yes : Yes /single/: No Higher / Fall in social status: Yes Health problems: Yes Mental Health Diagnoses: Yes Substance use disorders: No Previous attempt: No Family history of suicide: No Previous psychiatric stay: No Hopelessness: Yes Smoker: Yes Protective Factors Assessment Jain beliefs: Yes : No Responsible for young children: No Employed: Yes Stable relationships: No Supportive family: No Good rapport with provider: No Data Vital Signs Last 24 Hrs: Date Time Temp Pulse Resp B/P (MAP) Pulse Ox O2 Delivery O2 Flow Rate FiO2 01/24/17 07:16 36.8 72 16 107/70 80 110/68 Lab Results Last 24 Hrs: Last 24 Hours Test 01/23/17 17:48 01/23/17 21:53 01/24/17 08:21 Bedside Glucose 97 mg/dl 120 mg/dl 120 mg/dl Problem Qualifiers (1) Depression: Depression Type: major depressive disorder Major depression recurrence: recurrent Major depression episode severity: severe Psychotic features: without psychotic features
--- NOTE | 2017-01-24 14:47 | Pharmacy Progress Note ---
Pharmacy Glycemic Sign Off Nt Date of Service Jan 24, 2017. Assessment & Plan ASSESSMENT: * Pharmacy was consulted by Dr Del Castillo on 01/21/17 for glycemic control and to write orders per [facility] inpatient glycemic control protocol. * BSGs ranging 70 - 196 mg/dl the past 48 hours * Regimen has required NO adjustments over the past 48hrs to achieve this level of control * Do not anticipate further changes in patient status that would quickly deteriorate glycemic control (i.e. patient to be NPO for upcoming procedure, steroids tapering, starting tube feedings, etc). Therefore, pharmacy will sign -off consult. PLAN FOR INPATIENT GLYCEMIC CONTROL: No changes needed to current regimen. * Continue Metformin 1gm po BIDM * Continue NovoLog per scale ACHS * Goal range = 100 - 140 mg/dl * CF = 30 mg/dl/unit * CR = 1 unit for ever 10 g CHO consumed * A1c added to discharge instructions to be communicated to PCP. * Pharmacy is signing off of glycemic consult and will no longer be making adjustments to inpatient regimen. Please feel free to re-consult if needed. Thank you. DISCHARGE RECOMMENDATIONS: * A1c 6.2 % on 01/22/17. EAG = 131 mg/dl. * Resume outpatient DM regimen upon discharge.
[2017-01-24] MEDS: hydrOXYzine HCL 25 MG TAB PO PRN ×2 (21:46→22:22)
[2017-01-25 07:01] VITALS: PULSE 76; PULSE 84; TEMP 36.6
[2017-01-25 07:02] VITALS: BP_SYST 102; BP_SYST 111; BP_DIAS 67; BP_DIAS 72; PULSE 76; PULSE 84; TEMP 36.6
[2017-01-25] MEDS: FLUOXETINE HCL 20 MG CAP PO SCH (08:45)
[2017-01-25] MEDS: GABAPENTIN 600 MG TAB PO SCH ×3 (08:45→21:36)
[2017-01-25] MEDS: METFORMIN HCL 500 MG TAB PO SCH ×2 (08:45→17:40)
[2017-01-25] MEDS: NICOTINE 21 MG/24 HR TDSY TD SCH (08:45)
[2017-01-25] MEDS: IBUPROFEN 600 MG TAB PO SCH ×3 (08:45→21:36)
[2017-01-25] MEDS: INSULIN ASPART 100 UNITS/ML 3 ML PEN SC SCH ×4 (09:00→21:41)
[2017-01-25] MEDS: FLUTICASONE/SALMETEROL (ADVAIR) 500/50 INH 14 PUFF INH SCH ×2 (09:01→21:36)
--- NOTE | 2017-01-25 15:06 | Psychiatric Progress Notes ---
Progress Note Date of Service Jan 25, 2017. Interval History Alpesh Pittman is a 56-year-old male who was recently evicted from [facility] assisted, has a history of depression, and called the crisis line with suicidal thoughts. When they were unable to reach him, they completed a 302 warrant. He presented to the emergency room, and was willing to sign in voluntarily. Chief Complaint "I feel worried and depressed about my situation, I've lost everything". Subjective Patient was seen & assessed interval progress reviewed with Treatment Team Patient shares his concerns about his interaction with the weekend staff and states he feels listened to today "which is all I wanted" He notes he is still very depressed "nothing has changed" he vacillates between sharing how hard he has worked and taken care of others and how now no one is helping him, with recognizing that his shoe parts caser has been a huge advocate and helped him tremendously. He takes no responsibility for his actions that lead to being asked to leave [facility] and interprets that " they just kicked me out for nothing." He is not open to exploring this thought and why they may have acted. He shares numerous times about how he is estranged form his [id number]- and adult children. He remains hopeless, and denies SI today but states "I have no where to go, I don't see a reason to live" he is taking prozac 20 mg today is the 4th day, no further diarrhea, but ongoing flatulence, he does not see mood benefit, he is uncertain if he sees anxiety benefit "no because I still have things to worry about" Spent >17min in supportive and cognitive behavioral therapy - discussed character qualities (strong work ethic, investment in self care, and kindness) that he values in himself and asked him to look for examples each day where he can demonstrate these strengths - discussed smoking cessation and rationale for a planned quit attempt, past quit attempts and his motivation for cutting down and planning a quit attempt using his drivenness/work ethic to work on this goal. He is motivated and willing Review of Systems - flatulance denies other GI concerns at this time - tired, he does snore no overt evidence of PND or apneas, but told by many about his disruptive snoring, no waking SOB, denies VARELA, is not certain if he is more tired on neurontin since it was increased - ongoing joint pain in knee hip and back "no better, no worse" on higher dose neurontin - he has longstanding urinary frequency, and hesitancy "sometimes" and nocturia , no change ih med adjustments here but longstanding ENT: + sore throat Sleep Information Total Hours of Sleep: 7.00 Meal Information Percent of Breakfast Consumed: 100 Percent of Lunch Consumed: 100 Percent of Dinner Consumed: 100 Mental Status Exam During interview pt is: alert and oriented, cooperative Appearance: appropriately dressed, appropriately groomed Eye contact is: poor Motor behavior is: no abnormal motor movements Speech: loud Affect: depressed Mood is: depressed Thought process: linear, logical (perseverates on others misdeeds and his accomplishments and how no one is helping him despite his many years of hard work), other Thought content: cognitive distortions Suicidal thought are: present (passive here on unit, not able to contract for safety if he were not in locked environment) Homicidal thoughts are: denied Hallucinations: denies auditory, denies visual Cognition: memory grossly intact, language grossly intact Intelligence estimated to be: average Insight: poor Judgement: poor Impression 56-year-old white male with a history of depression who presents with worsening mood and suicidal ideation in the context of numerous psychosocial stressors, including pending divorce, homelessness, financial strain, and poor support. He has failed trials of duloxetine, mirtazapine, and escitalopram. He endorses suicidal thoughts to jump off a abdias, and is admitted voluntarily. He requires inpatient treatment due to the high risk for suicide if discharged. Plan (1) Suicidal ideation Q 15 min checks for safety Work on discharge safety plan 01/25/17 - major risk factors is significant loss patient has several significant losses to include homelessness, financial strain, pending divorce and estrangement from family, appreciate social work and patient's outpatient shoe parts caser working on assistance for housing and his supports (2) Depression Would like to try a different antidepressant. Will avoid sedating meds as he has had problems with oversedation with lorazepam and mirtazapine. Will stop mirtazapine and escitalopram, as he doesn't feel they've been helpful and wants to try something else. Start fluoxetine 20mg daily. Reviewed risks, benefits, side effects, and what to expect if the medication is working. Encourage group attendance and participation. 01/22 - continue current dose of Prozac, monitor D. 01/23 monitor for possible s/e of Prozac mike GI s/e given diarrhea and Gas that was most present on 01/2101/25/17 - continue to watch prozac regarding flatulance will not advance today and continue to monitor (3) Generalized anxiety disorder 01/22/17 - Start fluoxetine as above, and increase gabapentin to target both anxiety and chronic pain. Offer hydroxyzine prn for anxiety and sleep. Avoid benzos as he was altered and oversedated with lorazepam in the past. Work on behavioral techniques for coping with anxiety. 01/25/17 - see plan as above (4) Diabetes Continue home meds. Consult diabetic pharmacist. (5) Obesity Encourage healthy diet and gentle exercise. 01/25/17 - need to ask PCM for assistance in referral for evaluation for CLIVE at time of discharge given obesity and metabolic syndrome (6) Nicotine abuse Offer patch and gum as needed. Offer smoking cessation counseling. 01/25/17 - h/o 3ppd, down to 1ppd until a few months ago returned to 2-3 ppd. Inpatient he is having cravings but using the patch and the gum. THe patient is contemplational and willing to talk about a quit attempt and planning, will work with staff on using either the Quit Line or inhouse resources to help him start to plan a quit attempt (7) Chronic pain Reports chronic knee, back and hip pain. Will order APAP, Ibuprofen, and may use ice/heat pad as needed. Will increase gabapentin to 600mg tid to target neuropathic pain. Will need set up with new PCP - has chosen Dr. Angela Sierra, and will need an appointment at discharge. 01/23 and 01/25 continue plan as above (8) Frequency of urination 01/25/17 - describes longstanding frequency, hesitancy at times and nocturia for >1 year, no worse with recent med changes, refer to PCM at discharge for prostate evaluation Discharge / Aftercare Planning Primary Care Physician: Name: briana Therapist: Name: Marta at [facility] Fabric[employer] Mig Welder: Name: Brayden at [facility] Visit Code E&M Code: 05586 Therapy Code: 39794 spent >17min see subjective above Inventory Assets Strengths: Employed, willing for treatment Risk Factors Assessment Male: Yes : Yes /single/: No Higher / Fall in social status: Yes Health problems: Yes Mental Health Diagnoses: Yes Substance use disorders: No Previous attempt: No Family history of suicide: No Previous psychiatric stay: No Hopelessness: Yes Smoker: Yes Protective Factors Assessment Yazidism beliefs: Yes : No Responsible for young children: No Employed: Yes Stable relationships: No Supportive family: No Good rapport with provider: No Data Vital Signs Last 24 Hrs: Date Time Temp Pulse Resp B/P (MAP) Pulse Ox O2 Delivery O2 Flow Rate FiO2 01/25/17 07:02 36.6 76 18 102/67 84 111/72 01/25/17 07:01 36.6 76 84 Meds Administered Last 24 Hrs: Current Inpatient Medications Medications (Trade) Dose Ordered Sig/Garrison Route Start Time Stop Time Status Last Admin Dose Admin Acetaminophen (Tylenol Tab) 650 mg Q4H PRN PO 01/21/17 10:30 02/20/17 10:29 01/23/17 13:02 650 MG Bismuth Subsalicylate (Kaopectate Liqd) 15 ml AFTER EACH LOOSE BM PRN PO 01/21/17 10:30 02/20/17 10:29 01/22/17 21:44 15 ML Al Hydroxide/Mg Hydroxide (Maalox Susp) 30 ml Q4H PRN PO 01/21/17 10:30 02/20/17 10:29 Magnesium Hydroxide (Milk Of Magnesia Susp) 30 ml DAILY PRN PO 01/21/17 10:30 02/20/17 10:29 Sodium Chloride ([place] Nasal [place]) PRN PRN NA 01/21/17 10:30 02/20/17 10:29 Hydroxyzine HCl (Vistaril Tab) 50 mg HSZ PRN PO 01/21/17 10:30 02/20/17 10:29 01/24/17 22:22 50 MG Hydroxyzine HCl (Vistaril Tab) 25 mg Q4H PRN PO 01/21/17 10:30 02/20/17 10:29 Nicotine (Nicoderm Cq 21MG Patch) 1 patch QAM TD 01/22/17 09:00 02/21/17 08:59 01/25/17 08:45 1 PATCH Nicotine Polacrilex (Nicorette 2MG Gum) 1 piece Q2H PRN MT 01/21/17 10:30 02/20/17 10:29 01/23/17 08:32 1 PIECE Miscellaneous (Remove Nicoderm Patch) 1 ea HS N/A 01/21/17 21:00 02/20/17 20:59 01/21/17 21:00 1 EA Metformin HCl (Glucophage Tab) 1,000 mg BIDM PO 01/21/17 17:45 02/20/17 17:44 01/25/17 08:45 1,000 MG Insulin Aspart (novoLOG ASPART) SLIDING SCALE ACHS SC 01/21/17 13:00 02/20/17 12:59 01/25/17 12:53 4 UNITS Glucose (Glucose 40% Gel) 15-30 GRAMS 15 GRAMS... UD PRN PO 01/21/17 13:00 02/20/17 12:59 Glucose (Glucose Chew Tab) 4-8 Tablets 4 Tabl... UD PRN PO 01/21/17 13:00 02/20/17 12:59 Dextrose (Dextrose 50% 50ML Syringe) 25-50ML OF 50% DW IV FOR... UD PRN IV 01/21/17 13:00 02/20/17 12:59 Glucagon (Glucagon Inj) 1 mg UD PRN SQ 01/21/17 13:00 02/20/17 12:59 Albuterol (Ventolin Hfa Inhaler) 2 puffs Q4H PRN INH 01/21/17 16:00 02/20/17 15:59 01/23/17 21:44 2 PUFFS Salmeterol Xinafoate/ Fluticasone (Advair Diskus 500/50 Inh) 1 puff BID INH 01/21/17 22:00 02/20/17 21:59 01/25/17 09:01 1 PUFF Fluoxetine HCl (Prozac Cap) 20 mg QAM PO 01/22/17 09:00 02/21/17 08:59 01/25/17 08:45 20 MG Ibuprofen (Motrin Tab) 600 mg TID PO 01/21/17 22:00 02/20/17 21:59 01/25/17 08:45 600 MG Gabapentin (Neurontin Tab) 600 mg TID PO 01/21/17 22:00 02/20/17 13:59 01/25/17 08:45 600 MG Lab Results Last 24 Hrs: Last 24 Hours Test 01/24/17 17:20 01/24/17 20:54 01/25/17 07:49 01/25/17 12:26 Bedside Glucose 86 mg/dl 122 mg/dl 121 mg/dl 88 mg/dl Test 01/25/17 12:27 Bedside Glucose 82 mg/dl Problem Qualifiers (1) Depression: Depression Type: major depressive disorder Major depression recurrence: recurrent Major depression episode severity: severe Psychotic features: without psychotic features
[2017-01-25] MEDS: hydrOXYzine HCL 25 MG TAB PO PRN ×2 (21:37→22:17)
[2017-01-26 06:42] VITALS: BP_SYST 109; BP_SYST 87; BP_DIAS 55; BP_DIAS 69; PULSE 69; PULSE 87; TEMP 36.5
[2017-01-26] MEDS: METFORMIN HCL 500 MG TAB PO SCH ×2 (08:57→17:46)
[2017-01-26] MEDS: FLUTICASONE/SALMETEROL (ADVAIR) 500/50 INH 14 PUFF INH SCH ×2 (08:57→21:23)
[2017-01-26] MEDS: GABAPENTIN 600 MG TAB PO SCH ×3 (08:58→21:24)
[2017-01-26] MEDS: NICOTINE 21 MG/24 HR TDSY TD SCH (08:58)
[2017-01-26] MEDS: IBUPROFEN 600 MG TAB PO SCH ×3 (08:58→21:24)
[2017-01-26] MEDS: FLUOXETINE HCL 20 MG CAP PO SCH (08:58)
[2017-01-26] MEDS: INSULIN ASPART 100 UNITS/ML 3 ML PEN SC SCH ×4 (09:04→21:19)
--- NOTE | 2017-01-26 10:15 | Psychiatric Progress Notes ---
Progress Note Date of Service Jan 26, 2017. Interval History Alpesh Pittman is a 56-year-old male who was recently evicted from [facility], has a history of depression, and called the crisis line with suicidal thoughts. When they were unable to reach him, they completed a 302 warrant. He presented to the emergency room, and was willing to sign in voluntarily. Chief Complaint "Same as always.". Subjective Patient was seen & assessed interval progress reviewed with Treatment Team. The patient remains depressed, angry, frustrated. He spent time venting about his and the hurt and anger he feels by her leaving him. He vented about having worked for years, paying into the system and when he needs help from the system, he feels he isn't getting it. 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 He remains stuck on the fact that no one is able to find a living situation for him. He was kicked out of [facility], "I made one mistake, I said one wrong word and they kicked me out on the street last Wednesday.". Staff report that his classification case manager has called to report that she has referred him to a halfway in [place], but he refused to go because of the drugs in [place]. She also offered [facility] which he refused saying that it smelled bad there. She has no further resources to explore but will continue to work with him after discharge to explore apartment options as he can afford. Today he denies SI, but feels depressed and hopeless. He reports having talked to his ex- several times yesterday, saying that she said she is happy that he is getting help, but he then places blame on her for his being here. He reports impaired sleep, having been "up and down" all night. Appetite is good. He reports chronic joint pains in knees and ankle Review of Systems Constitutional: + fatigue ENT: No hearing loss, No unusual epistaxis, No nasal symptoms, No sore throat, No tinnitus, No dental problems, No trouble swallowing, No problem reported Respiratory: No cough, No sputum, No wheezing, No shortness of breath, No dyspnea on exertion, No dyspnea at rest, No hemoptysis, No problem reported Cardiovascular: No chest pain, No orthopnea, No PND, No edema, No claudication , No palpitations, No problem reported Abdomen: No pain, No nausea, No vomiting, No diarrhea, No constipation, No GI bleeding, No problem reported Musculoskeletal: + joint pain (arthritic knees and ankles) Neurologic: No memory loss, No paralysis, No weakness, No numbness/tingling, No vertigo, No balance problems, No problem reported Psychiatric: + depression symptoms, + insomnia (hopelessness) Integumentary: No rash, No itch, No new/changing skin lesions, No color change , No bleeding, No problem reported Sleep Information Total Hours of Sleep: 6.75 Meal Information Percent of Breakfast Consumed: 100 Percent of Lunch Consumed: 100 Percent of Dinner Consumed: 100 Mental Status Exam During interview pt is: alert and oriented, cooperative Appearance: appropriately dressed, appropriately groomed Eye contact is: fair Motor behavior is: no abnormal motor movements Speech: loud Affect: depressed, tearful Mood is: depressed, angry Thought process: linear, logical (perseverates on others misdeeds and his accomplishments and how no one is helping him despite his many years of hard work), other Thought content: cognitive distortions Suicidal thought are: denied Homicidal thoughts are: denied Hallucinations: denies auditory, denies visual Cognition: memory grossly intact, language grossly intact Intelligence estimated to be: average Insight: poor Judgement: poor Impression The patient continues to feel depressed and angry and is focused on placing blame on others for his circumstances. He is refusing to consider potential options for housing ([facility], [facility], living with sister in [facility]). Will increase Prozac to 40 mg. daily to target mood and will continue to encourage him to engage in finding solutions. Plan (1) Suicidal ideation Q 15 min checks for safety Work on discharge safety plan 01/25/17 - major risk factors is significant loss patient has several significant losses to include homelessness, financial strain, pending divorce and estrangement from family, appreciate social work and patient's outpatient classification case manager working on assistance for housing and his supports 01/26 - Increase Prozac to 20 mg. daily - Patient refusing to consider available options for housing. Will continue to encourage (2) Depression Would like to try a different antidepressant. Will avoid sedating meds as he has had problems with oversedation with lorazepam and mirtazapine. Will stop mirtazapine and escitalopram, as he doesn't feel they've been helpful and wants to try something else. Start fluoxetine 20mg daily. Reviewed risks, benefits, side effects, and what to expect if the medication is working. Encourage group attendance and participation. 01/22 - continue current dose of Prozac, monitor D. 01/23 monitor for possible s/e of Prozac mike GI s/e given diarrhea and Gas that was most present on 01/2101/25/17 - continue to watch prozac regarding flatulance will not advance today and continue to monitor (3) Generalized anxiety disorder 01/22/17 - Start fluoxetine as above, and increase gabapentin to target both anxiety and chronic pain. Offer hydroxyzine prn for anxiety and sleep. Avoid benzos as he was altered and oversedated with lorazepam in the past. Work on behavioral techniques for coping with anxiety. 01/25/17 - see plan as above (4) Diabetes Continue home meds. Consult diabetic pharmacist. (5) Obesity Encourage healthy diet and gentle exercise. 01/25/17 - need to ask PCM for assistance in referral for evaluation for [facility] at time of discharge given obesity and metabolic syndrome (6) Nicotine abuse Offer patch and gum as needed. Offer smoking cessation counseling. 01/25/17 - h/o 3ppd, down to 1ppd until a few months ago returned to 2-3 ppd. Inpatient he is having cravings but using the patch and the gum. THe patient is contemplational and willing to talk about a quit attempt and planning, will work with staff on using either the Quit Line or inhouse resources to help him start to plan a quit attempt (7) Chronic pain Reports chronic knee, back and hip pain. Will order APAP, Ibuprofen, and may use ice/heat pad as needed. Will increase gabapentin to 600mg tid to target neuropathic pain. Will need set up with new PCP - has chosen Dr. Angela Sierra, and will need an appointment at discharge. 01/23 and 01/25 continue plan as above 01/26 -Continue current meds -Encouraged to walk for exercise and to keep joints mobile (8) Frequency of urination 01/25/17 - describes longstanding frequency, hesitancy at times and nocturia for >1 year, no worse with recent med changes, refer to PCM at discharge for prostate evaluation Discharge / Aftercare Planning Primary Care Physician: Name: briana Therapist: Name: Marta at [facility] Statistical Modeler: Name: Brayden at [facility] Visit Code E&M Code: 95041 Inventory Assets Strengths: Employed, willing for treatment Risk Factors Assessment Male: Yes : Yes /single/: No Higher / Fall in social status: Yes Health problems: Yes Mental Health Diagnoses: Yes Substance use disorders: No Previous attempt: No Family history of suicide: No Previous psychiatric stay: No Hopelessness: Yes Smoker: Yes Protective Factors Assessment Holiness beliefs: Yes : No Responsible for young children: No Employed: Yes Stable relationships: No Supportive family: No Good rapport with provider: No Data Vital Signs Last 24 Hrs: Date Time Temp Pulse Resp B/P (MAP) Pulse Ox O2 Delivery O2 Flow Rate FiO2 01/26/17 06:42 36.5 69 16 87/55 87 109/69 Meds Administered Last 24 Hrs: Current Inpatient Medications Medications (Trade) Dose Ordered Sig/Garrison Route Start Time Stop Time Status Last Admin Dose Admin Acetaminophen (Tylenol Tab) 650 mg Q4H PRN PO 01/21/17 10:30 02/20/17 10:29 01/23/17 13:02 650 MG Bismuth Subsalicylate (Kaopectate Liqd) 15 ml AFTER EACH LOOSE BM PRN PO 01/21/17 10:30 02/20/17 10:29 01/22/17 21:44 15 ML Al Hydroxide/Mg Hydroxide (Maalox Susp) 30 ml Q4H PRN PO 01/21/17 10:30 02/20/17 10:29 Magnesium Hydroxide (Milk Of Magnesia Susp) 30 ml DAILY PRN PO 01/21/17 10:30 02/20/17 10:29 Sodium Chloride ([place] Nasal [place]) PRN PRN NA 01/21/17 10:30 02/20/17 10:29 Hydroxyzine HCl (Vistaril Tab) 50 mg HSZ PRN PO 01/21/17 10:30 02/20/17 10:29 01/25/17 22:17 50 MG Hydroxyzine HCl (Vistaril Tab) 25 mg Q4H PRN PO 01/21/17 10:30 02/20/17 10:29 Nicotine (Nicoderm Cq 21MG Patch) 1 patch QAM TD 01/22/17 09:00 02/21/17 08:59 01/26/17 08:58 1 PATCH Nicotine Polacrilex (Nicorette 2MG Gum) 1 piece Q2H PRN MT 01/21/17 10:30 02/20/17 10:29 01/23/17 08:32 1 PIECE Miscellaneous (Remove Nicoderm Patch) 1 ea HS N/A 01/21/17 21:00 02/20/17 20:59 01/21/17 21:00 1 EA Metformin HCl (Glucophage Tab) 1,000 mg BIDM PO 01/21/17 17:45 02/20/17 17:44 01/26/17 08:57 1,000 MG Insulin Aspart (novoLOG ASPART) SLIDING SCALE ACHS SC 01/21/17 13:00 02/20/17 12:59 01/26/17 09:04 6 UNITS Glucose (Glucose 40% Gel) 15-30 GRAMS 15 GRAMS... UD PRN PO 01/21/17 13:00 02/20/17 12:59 Glucose (Glucose Chew Tab) 4-8 Tablets 4 Tabl... UD PRN PO 01/21/17 13:00 02/20/17 12:59 Dextrose (Dextrose 50% 50ML Syringe) 25-50ML OF 50% DW IV FOR... UD PRN IV 01/21/17 13:00 02/20/17 12:59 Glucagon (Glucagon Inj) 1 mg UD PRN SQ 01/21/17 13:00 02/20/17 12:59 Albuterol (Ventolin Hfa Inhaler) 2 puffs Q4H PRN INH 01/21/17 16:00 02/20/17 15:59 01/23/17 21:44 2 PUFFS Salmeterol Xinafoate/ Fluticasone (Advair Diskus 500/50 Inh) 1 puff BID INH 01/21/17 22:00 02/20/17 21:59 01/26/17 08:57 1 PUFF Fluoxetine HCl (Prozac Cap) 20 mg QAM PO 01/22/17 09:00 02/21/17 08:59 01/26/17 08:58 20 MG Ibuprofen (Motrin Tab) 600 mg TID PO 01/21/17 22:00 02/20/17 21:59 01/26/17 08:58 600 MG Gabapentin (Neurontin Tab) 600 mg TID PO 01/21/17 22:00 02/20/17 13:59 01/26/17 08:58 600 MG Lab Results Last 24 Hrs: Last 24 Hours Test 01/25/17 12:26 01/25/17 12:27 01/25/17 16:02 01/25/17 20:47 Bedside Glucose 88 mg/dl 82 mg/dl 113 mg/dl 143 mg/dl Test 01/26/17 08:03 Bedside Glucose 119 mg/dl Problem Qualifiers (1) Depression: Depression Type: major depressive disorder Major depression recurrence: recurrent Major depression episode severity: severe Psychotic features: without psychotic features
[2017-01-27 06:43] VITALS: BP_SYST 108; BP_SYST 98; BP_DIAS 56; BP_DIAS 70; PULSE 73; PULSE 85; TEMP 36.5
[2017-01-27] MEDS: FLUTICASONE/SALMETEROL (ADVAIR) 500/50 INH 14 PUFF INH SCH ×2 (08:41→21:01)
[2017-01-27] MEDS: FLUOXETINE HCL 20 MG CAP PO SCH (08:42)
[2017-01-27] MEDS: GABAPENTIN 600 MG TAB PO SCH ×3 (08:42→21:02)
[2017-01-27] MEDS: METFORMIN HCL 500 MG TAB PO SCH ×2 (08:42→17:51)
[2017-01-27] MEDS: IBUPROFEN 600 MG TAB PO SCH ×3 (08:42→21:02)
[2017-01-27] MEDS: NICOTINE 21 MG/24 HR TDSY TD SCH (08:42)
[2017-01-27] MEDS: INSULIN ASPART 100 UNITS/ML 3 ML PEN SC SCH ×4 (08:44→21:04)
[2017-01-27] MEDS ORDERED: SIMETHICONE 80 MG CHEW PO PRN (11:00)
[2017-01-27] MEDS: ACETAMINOPHEN 325 MG TAB PO PRN (18:16)
[2017-01-28 06:51] VITALS: BP_SYST 106; BP_SYST 119; BP_DIAS 70; BP_DIAS 75; PULSE 76; PULSE 88; TEMP 36.6
[2017-01-28] MEDS: METFORMIN HCL 500 MG TAB PO SCH (08:20)
[2017-01-28] MEDS: FLUTICASONE/SALMETEROL (ADVAIR) 500/50 INH 14 PUFF INH SCH (08:20)
[2017-01-28] MEDS: FLUOXETINE HCL 20 MG CAP PO SCH (08:21)
[2017-01-28] MEDS: GABAPENTIN 600 MG TAB PO SCH ×2 (08:21→13:54)
[2017-01-28] MEDS: IBUPROFEN 600 MG TAB PO SCH ×2 (08:21→13:54)
[2017-01-28] MEDS: NICOTINE 21 MG/24 HR TDSY TD SCH (08:22)
[2017-01-28] MEDS: INSULIN ASPART 100 UNITS/ML 3 ML PEN SC SCH ×2 (09:02→13:24)
[2017-01-28] MEDS ORDERED: NCR2 MT (10:29)
[2017-01-28] MEDS ORDERED: GABA600T PO (10:29)
[2017-01-28] MEDS ORDERED: FLUO20CA36 PO (10:29)
[2017-01-28] MEDS ORDERED: NICO21DI4 TD (10:29)
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
[2017-01-28] MEDS: ACETAMINOPHEN 325 MG TAB PO PRN (11:20)
== END 2017-01-28 13:55 | disposition other institution (70) | DRG 885 ==
LOC: C.EDB 07:19 → ENRESERV 11:54 → C.MHU 12:20
PROVIDERS: ADMIT Psychiatry & Neurology Psychiatry; ATTEND Psychiatry & Neurology Psychiatry
DX: F33.2 Major depressive disorder, recurrent severe without psychotic features (principal); R45.851 Suicidal ideations; F41.1 Generalized anxiety disorder; E11.9 Type 2 diabetes mellitus without complications; E66.9 Obesity, unspecified; Z68.37 Body mass index [BMI] 37.0-37.9, adult; F17.210 Nicotine dependence, cigarettes, uncomplicated; G89.29 Other chronic pain; M25.561 Pain in right knee; M25.559 Pain in unspecified hip; M54.9 Dorsalgia, unspecified; E78.5 Hyperlipidemia, unspecified; R35.0 Frequency of micturition; Z79.899 Other long term (current) drug therapy; Z79.51 Long term (current) use of inhaled steroids; Z79.84 Long term (current) use of oral hypoglycemic drugs; Z79.4 Long term (current) use of insulin

== ENCOUNTER 2022-09-10 14:31 | Observation (INO) ==
[2022-09-10] MEDS ORDERED: ALBUT/IPRATROP 3MG/0.5MG NEB 3 ML VIAL NEB STA (14:54)
[2022-09-10 15:00] LABS: Basophils # (auto) 0.04 K/uL (0-0.2); Basophils % (auto) 0.7 %; Eosinophils # (auto) 0.09 K/uL (0-0.50); Eosinophils % (auto) 1.6 %; Hematocrit (blood only) 39.8 % (42.0-52.0); Hemoglobin 13.7 g/dl (14.0-18.0); Immature Granulocytes # (auto) 0.04 K/uL (0.01-0.20); Immature Granulocytes % (auto) 0.7 %; Lymphocytes # (auto) 0.98 K/uL (1.2-3.4); Lymphocytes % (auto) 17.8 %; Mean Corpuscular Hemoglobin 31.6 pg (25.0-34.0); Mean Corpuscular Hgb Conc 34.4 g/dL (32.0-36.0); Mean Corpuscular Volume 91.7 fL (80.0-100.0); Mean Platelet Volume 10.3 fL (9.4-12.4); Monocytes # (auto) 0.56 K/uL (0.11-0.59); Monocytes % (auto) 10.2 %; Platelet Count 162 K/uL (130-400); RDW Coefficient of Variation 12.9 % (11.5-14.5); Red Blood Count 4.34 M/uL (4.70-6.10); White Blood Count 5.51 K/ul (4.8-10.8)
--- NOTE | 2022-09-10 15:03 | Emergency Department Note ---
Impression & Plan GRANADOS (dyspnea on exertion), Chest pain, Poorly controlled type 2 diabetes mellitus ED Provider Note Provider: Tyler العراقي MD DATE OF SERVICE: 09/10/2022 CHIEF COMPLAINT: Dyspnea on exertion, chest pain HISTORY OF PRESENT ILLNESS: Patient is a 62-year-old gentleman history of diabetes, hypertension, hyperlipidemia, COPD, and obesity presenting here today reporting exertional shortness of breath and chest pain occurring this afternoon while at work. Has been working at the [employer]. Was doing shoveling and got very short of breath and was having chest discomfort. States he has had some exertional chest pain and shortness of breath as well as syncope over the last several months. Has been working with doctors in [facility] for this and was scheduled to have a stress test in several weeks. States that time she is notices heart rates been very elevated. Unsure if he may have a history of A. fib but is not on blood thinners. Was given 4 aspirin by EMS pr ior to arrival. States that in June he syncopized several times with exertional chest pain and shortness of breath. Is under a lot of stress at home. Denies significant chest pain or shortness of breath but states he is some chronic wheezing. Uses oxygen intermittently at home for his COPD. Was hospitalized for RSV this past fall as well. Recently switched to trilogy and had metoprolol started a week ago. PAST MEDICAL HISTORY: As noted above MEDICATIONS: Reviewed home medications SOCIAL HISTORY: Recently quit smoking, PHYSICAL EXAM: GENERAL: alert and oriented in no acute distress on stretcher Head: normocephalic and atraumatic EYES: No injection, discharge or icterus. NECK: Trachea midline. ENT: Mucous membranes pink and moist. Pharynx without erythema or exudate. LUNGS: Airway patent. No retractions. Breath sounds with some diffuse expiratory wheeze HEART: Regular rate and rhythm. No chest wall tenderness ABDOMEN: Soft and non-tender, without guarding or rebound. SKIN: Acyanotic, warm, dry, without rashes EXTREMITIES: Without swelling, tenderness or deformity NEUROLOGICAL: No focal deficits. No aphasia. No facial droop or slurred speech. Normal strength and tone in the extremities. Sensation to gross touch normal. Ambulatory. EK bpm normal sinus rhythm right bundle branch block. No acute ST segment elevation or depression with a QTC of 463. CONTINUOUS CARDIAC MONITORING: was ordered and showed a heart rate of 70s-80s bpm in normal sinus rhythm Patient's laboratory studies and imaging reviewed. Differential includes Cardiac ischemia, aortic dissection, pulmonary embolism, pneumothorax, pneumonia, pericarditis, myocarditis, esophageal rupture, GERD, cholecystitis, pancreatitis, musculoskeletal, as well as other pathologies. IMPRESSION/MEDICAL DECISION MAKING: Patient with concerning history of exertional shortness of breath and chest pain today. Has had some prior cardiac evaluation but no recent stress test and scheduled for 1 in several weeks. Did not syncopized today but some history of this in the past. Has been on metoprolol by his report was given full dose aspirin prior to arrival. Symptoms appear significantly improved upon arrival without chest pain although does endorse some wheezing. Not significant hypoxic and states he is feeling better at this point. EKG without STEMI and no evidence of A. fib or significant tachycardia here. Patient not the best historian unclear if he does have a history of A. fib or not as records not available here. Chest x-ray and basic labs will be obtained here including troponin. COVID test sent. Given a small nebulizer here as he is somewhat wheezy. Not having active chest pain. Received aspirin today. Blood work without significant leukocytosis and I doubt an infectious etiology. Borderline anemia. Chest x- ray by my review and radiology report without evidence of pneumonia or pneumothorax. No significant pulmonary edema. Story does not sound that co nsistent with acute PE or aortic dissection. Troponin not elevated upon initial draw here. Elevated blood sugar but he is a poorly controlled diabetic. No evidence of pancreatitis or hepatitis. Electrolytes otherwise within normal limits. Patient with elevated heart score atleast 4 and discussed with him given the exertional chest pain or shortness of breath staying for further cardiac evalua tion. He was in agreement. Hospitalist contacted. DIAGNOSIS: Dyspnea on exertion, chest pain, type 2 diabetes DISPOSITION: Hospitalist will evaluate Patient was agreeable with this plan. Past Med/Surg History Medical History (Updated 09/10/22 @ 15:55 by Tyler العراقي M.D.) Diabetes Surgical History (Updated 11/12/21 @ 01:12 by Carolina Velasco PA-C) No pertinent past surgical history Social History Smoking Status: Former smoker Tobacco Type: Cigarettes Preferred Language: Romansh current occupational status: employed Feels Safe at Home: Yes Allergies Allergies Allergy/AdvReac Type Severity Reaction Status Date / Time Penicillins Allergy Unknown nausea Verified 09/10/22 16:07 ketorolac [From Toradol] AdvReac Severe Vomiting Verified 09/10/22 16:08 naproxen AdvReac Severe Vomiting Verified 09/10/22 16:07 Home Meds Home Medications Medication Instructions Recorded Confirmed albuterol sulfate 90 mcg/actuation 2 puff inhalation Q4 PRN Wheezing 09/10/22 09/10/22 aerosol inhaler apixaban 5 mg tablet (Eliquis) 5 mg PO BID 09/10/22 09/10/22 cetirizine 10 mg tablet 10 mg PO QAM 09/10/22 09/10/22 diltiazem HCl 120 mg 120 mg PO QAM 09/10/22 09/10/22 capsule,extended release 24 hr fluticasone fur. 100 mcg-umeclid 1 inh inhalation QAM 09/10/22 09/10/22 62.5 mcg-vilant 25 mcg inhalat.powder (Trelegy Ellipta) metformin 1,000 mg tablet 1,000 mg PO BID 09/10/22 09/10/22 metoprolol succinate 50 mg 50 mg PO QAM 09/10/22 09/10/22 tablet,extended release 24 hr Results & Data (ED) Vital Signs Vital Signs - 24 hr 09/10/22 14:02 09/10/22 14:02 09/10/22 14:02 Temperature 36.7 C Temperature Source Oral Pulse Rate 75 Pulse Rhythm Regular Pulse Strength Normal Respiratory Rate 22 22 Respiratory Effort / Characteristics Non-Labored Respiratory Depth Normal Respiratory Pattern Regular Regular Blood Pressure 119/56 L Blood Pressure Mean 77 Pulse Oximetry 99 Oxygen Delivery Method Room Air Sepsis Recent Fever Within 48 Hours No Sepsis New/Unexplained Change in Mental Status N/A Sepsis Action Taken by Nursing No Action Required Laboratory Data 09/10/22 14:46 09/10/22 14:46 Lab Results 09/10/22 09/10/22 09/10/22 Range/Units 14:46 14:46 14:46 WBC 5.51 (4.8-10.8) K/ul RBC 4.34 L (4.70-6.10) M/uL Hgb 13.7 L (14.0-18.0) g/dl Hct 39.8 L (42.0-52.0) % MCV 91.7 (80.0-100.0) fL MCH 31.6 (25.0-34.0) pg MCHC 34.4 (32.0-36.0) g/dL RDW Std Deviation 43.0 (36.4-46.3) fL RDW Coeff of Tylor 12.9 (11.5-14.5) % Plt Count 162 (130-400) K/uL MPV 10.3 (9.4-12.4) fL Immature Gran % (Auto) 0.7 % Neut % (Auto) 69.0 % Lymph % (Auto) 17.8 % [place] % (Auto) 10.2 % Eos % (Auto) 1.6 % Baso % (Auto) 0.7 % Neut # (Auto) 3.80 (1.40-6.50) K/uL Lymph # (Auto) 0.98 L (1.2-3.4) K/uL [place] # (Auto) 0.56 (0.11-0.59) K/uL Eos # (Auto) 0.09 (0-0.50) K/uL Baso # (Auto) 0.04 (0-0.2) K/uL Immature Gran # (Auto) 0.04 (0.01-0.20) K/uL PT 10.3 (9.0-12.0) Seconds INR 1.0 (0.9-1.1) APTT 24.7 (21.0-31.0) Seconds PTT Ratio 0.9 Sodium 138 (136-145) mmol/L Potassium 4.3 (3.5-5.1) mmol/L Chloride 103 (98-107) mmol/L Carbon Dioxide 30 (21-32) mmol/L Anion Gap 5 (3-11) BUN 21 (6-23) mg/dl Creatinine 0.97 (0.6-1.4) mg/dl Est Cr Clr Drug Dosing 103.3 ml/min Est GFR ( Amer) 96.6 ml/min Est GFR (Non-Af Amer) 83.3 ml/min BUN/Creatinine Ratio 21.6 H (10-20) Glucose 330 H* (70-99(Fasting)) mg/dl Calcium 9.1 (8.5-10.1) mg/dl Total Bilirubin 0.8 (0.2-1.0) mg/dl AST 16 (13-39) U/L ALT 16 (7-52) U/L Alkaline Phosphatase 112 H (34-104) U/L Troponin I High Sens 6.5 (0-20) pg/ml Total Protein 6.1 (6.0-8.3) gm/dl Albumin 3.9 (3.4-5.0) gm/dl Globulin 2.2 L (2.5-4.0) gm/dl Albumin/Globulin Ratio 1.8 (0.9-2) Lipase 68 (11-82) U/L SARS-CoV-2, RNA, NAAT (NEGATIVE) 09/10/22 Range/Units 15:05 WBC (4.8-10.8) K/ul RBC (4.70-6.10) M/uL Hgb (14.0-18.0) g/dl Hct (42.0-52.0) % MCV (80.0-100.0) fL MCH (25.0-34.0) pg MCHC (32.0-36.0) g/dL RDW Std Deviation (36.4-46.3) fL RDW Coeff of Tylor (11.5-14.5) % Plt Count (130-400) K/uL MPV (9.4-12.4) fL Immature Gran % (Auto) % Neut % (Auto) % Lymph % (Auto) % [place] % (Auto) % Eos % (Auto) % Baso % (Auto) % Neut # (Auto) (1.40-6.50) K/uL Lymph # (Auto) (1.2-3.4) K/uL [place] # (Auto) (0.11-0.59) K/uL Eos # (Auto) (0-0.50) K/uL Baso # (Auto) (0-0.2) K/uL Immature Gran # (Auto) (0.01-0.20) K/uL PT (9.0-12.0) Seconds INR (0.9-1.1) APTT (21.0-31.0) Seconds PTT Ratio Sodium (136-145) mmol/L Potassium (3.5-5.1) mmol/L Chloride (98-107) mmol/L Carbon Dioxide (21-32) mmol/L Anion Gap (3-11) BUN (6-23) mg/dl Creatinine (0.6-1.4) mg/dl Est Cr Clr Drug Dosing ml/min Est GFR ( Amer) ml/min Est GFR (Non-Af Amer) ml/min BUN/Creatinine Ratio (10-20) Glucose (70-99(Fasting)) mg/dl Calcium (8.5-10.1) mg/dl Total Bilirubin (0.2-1.0) mg/dl AST (13-39) U/L ALT (7-52) U/L Alkaline Phosphatase (34-104) U/L Troponin I High Sens (0-20) pg/ml Total Protein (6.0-8.3) gm/dl Albumin (3.4-5.0) gm/dl Globulin (2.5-4.0) gm/dl Albumin/Globulin Ratio (0.9-2) Lipase (11-82) U/L SARS-CoV-2, RNA, NAAT NEGATIVE (NEGATIVE) Imaging Data Radiologist's Impression: Chest X-Ray 09/10/22 14:52 SINGLE VIEW CHEST CLINICAL HISTORY: Atypical chest pain FINDINGS: 2 AP, portable, upright chest radiographs are compared to study dated 05/27/2016 and correlated with chest CT dated 05/05/2016. The heart is enlarged noting atherosclerotic calcification of the thoracic aorta. The pulmonary vasculature is noncongested. Emphysema and chronic interstitial thickening is similar to previous. The lungs and pleural spaces are otherwise clear noting bibasilar scarring/atelectasis. No pneumothorax is seen. The skeletal structures are osteopenic. There are healed left-sided rib fractures. Postoperative change is noted in the lower cervical spine. IMPRESSION: Cardiomegaly and emphysema with no acute cardiopulmonary abnormality identified. ACT 112: Negative or not required by law. Electronically signed by: Dru Ryan M.D. 09/10/2022 3:11 PM Discharge Plan Visit Data Chief Complaint: Chest Pain ED Provider: Tyler العراقي Discharge Problem: GRANADOS (dyspnea on exertion), Chest pain, Poorly controlled type 2 diabetes ken zamudio Patient Disposition: Being Evaluated by Hospitalist Forms Stand Alone Forms: My [facility] Prescriptions Prescriptions: No Action metoprolol succinate 50 mg tablet extended release 24 hr 50 mg PO QAM Trelegy Ellipta 100-62.5-25 mcg blister with device 1 inh INHALATION QAM metformin 1,000 mg tablet 1,000 mg PO BID Eliquis 5 mg tablet 5 mg PO BID cetirizine 10 mg tablet 10 mg PO QAM diltiazem HCl 120 mg capsule,extended release 24hr 120 mg PO QAM albuterol sulfate 90 mcg/actuation HFA aerosol inhaler 2 puff INHALATION Q4 PRN (Reason: Wheezing) Referrals Referrals: PCP,NO [Physician] - : Chest pain Qualifiers: Chest pain type: unspecified Qualified Code(s): R07.9 - Chest pain, unspecified
--- NOTE | 2022-09-10 15:13 | XRay Report ---
SINGLE VIEW CHEST CLINICAL HISTORY: Atypical chest pain FINDINGS: 2 AP, portable, upright chest radiographs are compared to study dated 05/27/2016 and correl ated with chest CT dated 05/05/2016. The heart is enlarged noting atherosclerotic calcification of the thoracic aorta. The pulmonary vasculature is noncongested. Emphysema and chronic interstitial thicke daniel is similar to previous. The lungs and pleural spaces are otherwise clear noting bibasilar scarri ng/atelectasis. No pneumothorax is seen. The skeletal structures are osteopenic. There are healed lef t-sided rib fractures. Postoperative change is noted in the lower cervical spine. IMPRESSION: Cardiomegaly and emphysema with no acute cardiopulmonary abnormality identified. ACT 112: Negative or not required by law. Electronically signed by: Dru Ryan M.D. 09/10/2022 3:11 PM
[2022-09-10 15:15] LABS: Partial Thromboplastin Ratio 0.9; Partial Thromboplastin Time 24.7 Seconds (21.0-31.0); Prothrombin Time 10.3 Seconds (9.0-12.0)
[2022-09-10 15:38] LABS: Troponin I High Sensitivity 6.5 pg/ml (0-20)
[2022-09-10 15:49] LABS: Albumin Globulin Ratio 1.8 (0.9-2); Albumin Level 3.9 gm/dl (3.4-5.0); BUN Creatinine Ratio 21.6 (10-20); Bilirubin,Total 0.8 mg/dl (0.2-1.0); Calcium 9.1 mg/dl (8.5-10.1); Creatinine Clr Calc Pharmacy 103.3 ml/min; Est GFR (African American) 96.6 ml/min; Est GFR (Non-African American) 83.3 ml/min; Globulin 2.2 gm/dl (2.5-4.0); Potassium 4.3 mmol/L (3.5-5.1); Total Protein 6.1 gm/dl (6.0-8.3)
--- NOTE | 2022-09-10 18:04 | History & Physical Report ---
Date of Service September 10, 2022 Assessment & Plan (1) Syncope and collapse: Plan: While he presents with an initial plan of moving towards stress test tomorrow, I really suspect that his symptoms are more due to exertional dyspnea/hypoxia driving a tachycardiathat sounds like it probably turns into tach arrhythmia (probably A. fib)and the combination of hypoxia and tachycardia leads to his symptoms/syncope. ---> Work-up as below (2) Tachyarrhythmia: Plan: Based on his recollection, he believes he was told atrial fibrillation. That said, such short bursts, and peak rate of [id number] that he remembers when he had RSV, I do wonder about other similar arrhythmias -[facility] -Obtain records from admission to assess what rhythms they were seeing -Telemetry -Possibly outpatient rhythm monitoring ---> As far as managementhis rates are good at rest on his current diltiazem and metoprololcontinue home meds at home doses for now. Need to see what he does with exertion, as I suspect (as above noted) that hypoxia/exertion likely drive him into inappropriate degrees of tachycardia Is on apixabansounds to be because his presumed diagnosis is A. fib. 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 Especially in the context of his high exertion job -Given that severity of airflow obstruction will help corroborate my working diagnosis, versus make me more concerned about purely primary rhythm issues (which could necessitate cardiology evaluation for things such as ablationgiven the bursting nature of his tachyarrhythmia precluding simply escalating his baseline meds as a logical answer) will get basic spirometry -Continue Trelegy and as needed albuterol (4) Chest pain: Plan: seems more likley related to all of above, not typical for angina. initial trop reassuring- trend. stress test tomorrowpartly to assess current symptoms, largely to assess exertional capacity/exercise capacity, and also because his pretest probability of having severe coronary disease is extremely high. (5) Poorly controlled type 2 diabetes mellitus: Plan: Discussed critical role of lifestyle in the management of type 2 diabetes, briefly touched on "high sugars clog arteries" as far as the main reason to be worried about diabetes control/microvascular ischemia -Discussed that his half gallon of sugar sweetened sweet tea a day is likely driving up his A1c by an easy 2-3 points, and other simple/starchy carbs are a big contributor -Acute managementfingersticks and supplemental insulinrole into a basal bolus regimen if needed; check A1c -Hold metformin for now in case left heart cath is needed (6) Hyperlipidemia: Plan: Lipid panel in the morning, probably would benefit from high intensity statin, will await labs and stress test to better risk stratify (7) DVT prophylaxis: Plan: Anticoagulated with apixaban (8) Discharge planning issues: Plan: Observe to telemetry, plan as above Plan Risk high due to potential life-threatening diagnoses and differential and severe symptoms causing presentation History of Present Illness Chief Complaint: Syncope Primary Care Provider: Beth Rivas, DO Very pleasant 62-year-old male who presents directly from work. He notes that acutely what happened was he was working really hard, started to feel fairly short of breath with a stabbing chest pain and a racing heart with lightheadedness. He was able to sit down rather than pass out. He notes that he has had multiple of these episodes in the last month or 2many of which have resulted in syncope. He does note a progressive fatigue over the last 3 months or sofairly abrupt in onset and that he does not recall feeling this way prior to about May or June, but otherwise "quickly insidious" [facility] [place] for what sounds to have been RSV. He notes he was in there for a while quite ill. During that time he notes that his heart rate was as high as about 180. He believes he was diagnosed with atrial fibrillation at that time. Since then, he has had periodic racing heart episodesmostly exertionaland his line haul driver increased his metoprolol which seems to have improved his baseline heart rate, but not necessarily exertional. He is on Eliquispresumably for atrial fibrillation. He does remember that they did an echocardiogram while he was admitted Allergies Allergy/AdvReac Type Severity Reaction Status Date / Time Penicillins Allergy Unknown nausea Verified 09/10/22 16:07 ketorolac [From Toradol] AdvReac Severe Vomiting Verified 09/10/22 16:08 naproxen AdvReac Severe Vomiting Verified 09/10/22 16:07 Home Medications Medication Instructions Recorded Confirmed Type albuterol sulfate 90 mcg/actuation 2 puff inhalation Q4 PRN Wheezing 09/10/22 09/10/22 History aerosol inhaler apixaban 5 mg tablet (Eliquis) 5 mg PO BID 09/10/22 09/10/22 History cetirizine 10 mg tablet 10 mg PO QAM 09/10/22 09/10/22 History diltiazem HCl 120 mg 120 mg PO QAM 09/10/22 09/10/22 History capsule,extended release 24 hr fluticasone fur. 100 mcg-umeclid 1 inh inhalation QAM 09/10/22 09/10/22 History 62.5 mcg-vilant 25 mcg inhalat.powder (Trelegy Ellipta) metformin 1,000 mg tablet 1,000 mg PO BID 09/10/22 09/10/22 History metoprolol succinate 50 mg 50 mg PO QAM 09/10/22 09/10/22 History tablet,extended release 24 hr Past Med/Surg History Medical History Diabetes Surgical History No pertinent past surgical history Social History Smoking Status: Former smoker Tobacco Type: Cigarettes Preferred Language: Belarusian current occupational status: employed Feels Safe at Home: Yes Review of Systems Review of Systems: All systems reviewed & are unremarkable except as noted in HPI & below Physical Exam Physical Exam: General he is awake and alert pleasant no distress. HEENT normocephalic atraumatic mucous membranes moist. Lungs show scattered rhonchi and wheezes throughout, moderate air entry, no accessory muscle use good effort. Cardio is quite distant no rubs murmurs gallops. He is sinus at about 70 on the monitor. EKG shows right bundle and nonspecific conduction delay mostly manifest by an S in lead I and a little bit of a nonspecific QRS widening in the same region. Abdomen soft nondistended nontender no masses organomegaly. Extremities without sinus clubbing or edema. Results & Data Results & Data ([facility]) Vital Signs (Past 12 Hours) Vital Signs Temp Pulse Resp BP Pulse Ox O2 Del Method 09/10/22 15:30 71 21 09/10/22 15:01 110/47 L 09/10/22 15:01 73 18 93 09/10/22 15:00 72 21 09/10/22 14:47 79 22 95 09/10/22 14:02 22 09/10/22 14:02 Room Air 09/10/22 14:02 98.1 F 75 22 119/56 L 99 Laboratory Results EKG personally reviewedas above, labs reviewedCBC reassuring, troponin surprisingly normal at 6.5, glucose 330, basic metabolic panel reassuring, lipase normal, COVID-negative. Chest x-ray reviewed by me as well as radiology consistent with emphysematous changes but no infiltrate Code Status & VTE Plan VTE Prophylaxis Plan VTE Prophylaxis will be ordered: Yes PG Care Time/CCT Total # of Minutes Spent Total Time Spent with Patient: Total time spent is greater than 50% in coordination of care (as documented) at patient's floor/unit and/or counseling patient: Coding Level of Care Code 57653 INT INP/OBS CARE 3/75MIN Diagnoses Syncope and collapse R55 Tachyarrhythmia R00.0 COPD (chronic obstructive pulmonary disease) J44.9 Chest pain R07.9 Chest pain type: unspecified Poorly controlled type 2 diabetes mellitus E11.65 Hyperlipidemia E78.5 DVT prophylaxis Z29.9 Discharge planning issues Z02.9 (1) Chest pain Chest pain type: unspecified Qualified Code(s): R07.9 - Chest pain, unspecified
[2022-09-10] MEDS ORDERED: ONDANSETRON INJ 2 MG/ML 2 ML VIAL IV PRN (19:40)
[2022-09-10] MEDS ORDERED: ALUMINUM/MAGNESIUM SUSP 30 ML UDC PO PRN (19:40)
[2022-09-10] MEDS ORDERED: MAGNESIUM HYDROXIDE SUSP 30 ML UDC PO PRN (19:40)
[2022-09-10] MEDS ORDERED: POLYETHYLENE (MIRALAX) 17 GM PACK PO PRN (19:40)
[2022-09-10] MEDS ORDERED: ALBUTEROL HFA 8 GM INHALER INH PRN (19:40)
[2022-09-10] MEDS ORDERED: ACETAMINOPHEN 325 MG TAB PO PRN (19:40)
[2022-09-10] MEDS ORDERED: NITROGLYCERIN SL 0.4 MG/TAB TAB SL PRN (19:40)
[2022-09-10] MEDS: INSULIN ASPART PER UNIT SC SCH (21:43)
[2022-09-10] MEDS: APIXABAN 5 MG TABLET PO SCH (21:46)
[2022-09-11] MEDS ORDERED: MELATONIN 3 MG TAB PO PRN (00:09)
--- NOTE | 2022-09-11 07:12 | Discharge Summary ---
Date of Service September 11, 2022 Admission HPI Per Admitting Provider Very pleasant 62-year-old male who presents directly from work. He notes that acutely what happened was he was working really hard, started to feel fairly short of breath with a stabbing chest pain and a racing heart with lightheadedness. He was able to sit down rather than pass out. He notes that he has had multiple of these episodes in the last month or 2many of which have resulted in syncope. He does note a progressive fatigue over the last 3 months or sofairly abrupt in onset and that he does not recall feeling this way prior to about May or June, but otherwise "quickly insidious" He was hospitalized [facility] [place] for what sounds to have been RSV. He notes he was in there for a while quite ill. During that time he notes that his heart rate was as high as about 180. He believes he was diagnosed with atrial fibrillation at that time. Since then, he has had periodic racing heart episodesmostly exertionaland his seismographer increased his metoprolol which seems to have improved his baseline heart rate, but not necessarily exertional. He is on Eliquispresumably for atrial fibrillation. He does remember that they did an echocardiogram while he was admitted Admission Exam Per Admitting Provider General he is awake and alert pleasant no distress. HEENT normocephalic atraumatic mucous membranes moist. Lungs show scattered rhonchi and wheezes throughout, moderate air entry, no accessory muscle use good effort. Cardio is quite distant no rubs murmurs gallops. He is sinus at about 70 on the monitor. EKG shows right bundle and nonspecific conduction delay mostly manifest by an S in lead I and a little bit of a nonspecific QRS widening in the same region. Abdomen soft nondistended nontender no masses organomegaly. Extremities without sinus clubbing or edema. Principal Diagnosis Tachyarrhythmia COPD Discharge Exam General: A&Ox3. NAD. Cooperative. HEENT: Atraumatic, normocephalic. Pulm: Scattered wheezes and occasional rales. Symmetrical chest rise. No increase work of breathing. No respiratory distress. Cardiac: RRR, -mrg. Radial pulses intact and symmetrical. No LE edema. Abdominal: soft, non-tender, non-distended, BS x 4 Skin: warm, dry, no rash Discharge Data Allergies Allergy/AdvReac Type Severity Reaction Status Date / Time Penicillins Allergy Unknown nausea Verified 09/10/22 16:07 ketorolac [From Toradol] AdvReac Severe Vomiting Verified 09/10/22 16:08 naproxen AdvReac Severe Vomiting Verified 09/10/22 16:07 Consultations 09/10/22 16:00 ED Decision to Admit Stat 09/10/22 17:48 HIM [Consult Health Information Management] Stat Hospital Course (1) Syncope and collapse: With negative cardiopulmonary stress test on 09/11. I really suspect that his symptoms are more due to exertional dyspnea/hypoxia driving a tachycardiathat sounds like it probably turns into tachyarrhythmia (probably A. fib)and the combination of hypoxia and tachycardia leads to his symptoms/syncope. ---> Work-up as below (2) Tachyarrhythmia: Based on his recollection, he believes he was told atrial fibrillation. That said, such short bursts, and peak rate of [id number] that he remembers when he had RSV, I do wonder about other similar arrhythmias - complete TTE on 09/11 without abnormalities - cardiopulmonary stress test negative, although somewhat limited due to poor exercise tolerance and associated dyspnea - no arrhythmias on telemetry while hospitalized - consider outpatient Holter vs event monitor - per PCP/Cardiology ---> As far as managementhis rates are good at rest on his current diltiazem and metoprololcontinue home meds at home doses for now. Need to see what he does with exertion, as I suspect (as above noted) that hypoxia/exertion likely drive him into inappropriate degrees of tachycardia Is on apixabansounds to be because his presumed diagnosis is A. fib. He was talking about his seismographer wanting to set him up with an outpatient ambulatory monitorraising the question of if they, too, were trying to pursue more clarity in the diagnosis of his rhythmversus simply following for rate control ---> recommend ongoing evaluation by Cardiology and possibly heart rhythm monitoring as stated above (3) COPD (chronic obstructive pulmonary disease): Suspect bad baseline of COPD, and while he is somewhat wheezy and rhonchorous, given his lack of new respiratory symptoms, I really do not believe he is in any acute exacerbation. Significant smoking history. -My biggest concern is how much he desaturates with exertionparticularly given his exertional dyspnea/tachyarrhythmia/syncope. Especially in the context of his high exertion sob -nocturnal oximetry testing without significant desaturations -Continue Trelegy and as needed albuterol -consider home sleep study as patient reports nocturnal apnea - per PCP -recommend full PFTs if not done recently - per PCP (4) Chest pain: seems more likley related to all of above, not typical for angina. Trop negative x4. Stress negative. Likely due to above-mentioned problems (5) Poorly controlled type 2 diabetes mellitus: Discussed critical role of lifestyle in the management of type 2 diabetes, briefly touched on "high sugars clog arteries" as far as the main reason to be worried about diabetes control/microvascular ischemia -Discussed that his half gallon of sugar sweetened sweet tea a day is likely driving up his A1c by an easy 2-3 points, and other simple/starchy carbs are a big contributor -A1c 9.1 -Continue Metformin on discharge; counseled on dietary modifications s pecifically sweet tea as stated above -Consider GLP1 for further assistance if remains uncontrolled - per PCP (6) Hyperlipidemia: LDL 59 when checked in the hospital. Stress test negative as stated above. - consider statin for ASCVD risk reduction - defer to PCP (7) DVT prophylaxis: Anticoagulated with apixaban Total Time Total Time Spent Total Time Spent (In Minutes): <30 minutes Discharge Plan Discharge Items Patient Disposition: Home - Self-Care Reason For Visit: CHEST PAIN Discharge Diagnosis: Chest Pain Tachyarrhythmia COPD Activity: Per Instructions section Non-emergency contact: Primary Care Provider and Income Tax Return Preparer Call non-emergency contact if: you have any medication questions and your symptoms worsen Follow-up/Referrals: Beth Rivas DO [Primary Care Provider] - (please schedule patient with PCP within 1 week of discharge) Diet: Carb Consistent or DM2 Addtl Attending Provider Instructions: You were admitted to [facility] from 09/10 - 09/11 for chest pain, palpitations and shortness of breath. You had a stress test that was thankfully normal. It is likely that your symptoms are due to COPD as well as possible sleep apnea. It may also be possible that your heart has an irregular rhythm, although we did not see the irregular rhythm while you were hospitalized. You will be discharged on 09/11. You should see you PCP within 1 week of discharge; your PCP should be getting you set up with a home sleep study, and you may need to have breathing testing done called PFTs tell determine the seriousness of your COPD. You will also need to follow up with your Income Tax Return Preparer. Please continue to take your regular medications and inhalers. We hope you feel better, and it was a pleasure to help provide your care while you were hospitalized. Pending Studies at Discharge: No Stand-Alone Forms: [facility], Work/School Release, Smoking Cessation Medications and DC Order Prescriptions: Continued metoprolol succinate 50 mg tablet extended release 24 hr 50 mg PO QAM Trelegy Ellipta 100-62.5-25 mcg blister with device 1 inh INHALATION QAM metformin 1,000 mg tablet 1,000 mg PO BID Eliquis 5 mg tablet 5 mg PO BID cetirizine 10 mg tablet 10 mg PO QAM diltiazem HCl 120 mg capsule,extended release 24hr 120 mg PO QAM albuterol sulfate 90 mcg/actuation HFA aerosol inhaler 2 puff INHALATION Q4 PRN (Reason: Wheezing) Discharge Orders: Discharge Order (Routine); Ordered 09/11/22 Ordered By: Miquel Crain Admission Data Admit Date/Time: 09/10/22 16:32 Attending Provider: Ricardo Pierson Admit Provider: Dequan Booth Primary Care Provider: Beth Rivas Other Providers: Joe Beckham Other Interventions: Discharge Summary Assessment (RN) Last Done: 09/11/22 14:39 Supervising Physician Co-Signing Physician Notes I personally examined the patient and verified all garnett points of history and exam, discussed case, and agree with decision making with Dr Crain Feeling okay. Would like to go home. Stress test fortunately negative. Overnight pulse ox showing desaturations, but fortunately a.m. blood gas without hypercapnia. Lipids and A1c noted. Vitals noted, in general he is awake and alert pleasant no distress. HEENT normocephalic atraumatic mucous membranes moist. Breathing unlabored no accessory muscle use good effort. Skin shows no rashes no pallor or icterus. Exertional chest discomfort/shortness of breath/tach arrhythmia/occasional syncopestrongly suspect poor exercise tolerance/exertional breathing distress leading to tachycardiaand this occasionally leading to syncope. Fortunately everything looks fairly reassuring acutely, and will be able to turn things back over to his outpatient team Tachyarrhythmiais being set up for ambulatory monitoring, this seems quite reasonable. Continue diltiazem/metoprolol and anticoagulation. Follow-up with his regular seismographer. The hard part will be if his tachycardia is only exertional, it may benefit more from lifestyle change than from arrhythmia managementbut obviously this is to be seen. COPDcontinue inhalers, just started on them not that long ago. Presumed sleep apneafortunately no evidence of OHS. Sleep study to be set up Uncontrolled type 2 diabetesdiscussed that with his A1c being "only" 9.1 in spite of his lifestylehe probably could realistically get his diabetes under great control simply by getting rid of the sweet tea, and with lifestyle change would highly probably be able to for all intents and purposes put his diabetes into remission. Safe/stable for home. Otherwise as above Resident Activity Tracking Resident Involvement: Resident Care Provided Care Provided: Adult Hospital Medicine
[2022-09-11 07:19] LABS: Base Excess ABG 6.8 mEq/L (-9-1.8); HCO3 ABG 31 mmol/L (19-24); Oxygen Saturation ABG 97.8 % (90-95); PCO2 ABG 43 mmHg (35-46); PO2 ABG 91 mmHg (80-95); pH ABG 7.47 (7.35-7.45)
[2022-09-11 07:35] LABS: Allen Test Pos (Pos)
[2022-09-11] MEDS: APIXABAN 5 MG TABLET PO SCH (08:23)
[2022-09-11 08:31] LABS: Estimated Average Glucose 214 mg/dl; Hemoglobin A1C 9.1 % (4.5-5.6)
[2022-09-11 08:33] LABS: Chol HDL Ratio 2.6 (0-5)
[2022-09-11] MEDS ORDERED: FLUARIX QUADRIVALENT 0.5 ML SYR IM ONE (09:00)
[2022-09-11] MEDS ORDERED: FLUTICASONE FUROATE 100MCG 14 PUFFS/INHALER INH SCH (09:00)
[2022-09-11] MEDS ORDERED: PNEUMOCOCCAL POLYSACCHARIDES 25 MCG/0.5 ML VIAL/SYR IM ONE (09:00)
[2022-09-11] MEDS ORDERED: ASPIRIN 81 MG ECTAB PO SCH (09:00)
[2022-09-11] MEDS ORDERED: METOPROLOL SUCC 50MG EXT REL TAB PO SCH (09:00)
[2022-09-11] MEDS ORDERED: CETIRIZINE HCL 10 MG TABLET PO SCH (09:00)
[2022-09-11] MEDS ORDERED: dilTIAZem HCL 120 MG CAPCR PO SCH (09:00)
[2022-09-11] MEDS ORDERED: NON-FORMULARY MEDICATION (Fluticasone-Umeclidin-Vilanter [Trelegy Ellipta] 100-62.5-25 mcg INH SCH (09:00)
[2022-09-11] MEDS: INSULIN ASPART PER UNIT SC SCH ×2 (09:00→12:23)
[2022-09-11] MEDS ORDERED: UMECLIDINIUM/VILANTEROL 62.5/25MCG 7 PUFFS/INHALER INH SCH (09:00)
--- NOTE | 2022-09-11 11:18 | Electrocardiogram Report ---
Test Reason : Blood Pressure : / mmHG Vent. Rate : 074 BPM Atrial Rate : 074 BPM P-R Int : 182 ms QRS Dur : 118 ms QT Int : 418 ms P-R-T Axes : 042 -44 028 degrees QTc Int : 463 ms Poor data quality, interpretation may be adversely affected Normal sinus rhythm Left axis deviation Right bundle branch block Abnormal ECG When compared with ECG of 27-MAY-2016 20:11, Right bundle branch block is now Present Confirmed by Yony Miramontes ([id number]) on 09/11/2022 11:18:33 AM Referred By: REFERRED SELF Confirmed By:Yony Miramontes
--- NOTE | 2022-09-11 12:51 | XCELERA ---
[id number]
--- NOTE | 2022-09-11 17:23 | Billing Data ---
Date of Service September 11, 2022 Coding Level of Care Code HOSP INP/OBS DISCH 30 MIN/LESS
--- NOTE | 2022-09-11 17:32 | Billing Data ---
Date of Service September 11, 2022 Coding Level of Care Code HOSP INP/OBS DISCH 30 MIN/LESS
== END 2022-09-11 14:58 | disposition home or self-care (01) ==
LOC: ED 14:31 → INTOOBSV 16:32 → 4W 16:32 → SUATTDRO 16:32 → 4W 20:11